=== PATIENT | male | born 1955 | race Caucasian/White ===

== ENCOUNTER 2022-07-22 11:58 | Emergency (ER) | payer OTHER, BC ==
--- OUTSIDE RECORDS SUMMARY | 2022-07-22 12:06 | XMS REPORT | Continuity of Care Document ---
:1955 Author Organization [facility] t Address [address] [place] [address] Dr. [place]. [address] [place] [address] Care Team Providers Name Role Phone Say Lanier Primary Care Physician [phone] Say Lanier Attending Clinician Unavailable Melba KUMAR, Vinicio Attending Clinician [phone] Kristian DWYER, Cristal Lin Attending Clinician Unavailable Only, Gal Adult [facility] Test Attending Clinician Unavailable Bert Andres MD Attending Clinician BERT ANDRES Attending Clinician Unavailable Fatimah DWYER, Monse Attending Clinician Unavailable Payers Payer Name Policy Type Policy Number Effective Date Expiration Date S jules Blue Cross Blue 6 [id number] 2021 [facility] 00:00:00 - [facility] MEDICARE PART A [id number] 2018 \T\ B 00:00:00 BCBS FED SELECT [id number] 2021 00:00:00 Blue Cross Blue C1 [id number] 2013 Common Sp [facility] 00:00:00 - [facility] MEDICARE MB [id number] 2018 [facility] 00:00:00 - [facility] MEDICARE MB [id number] 2018 [facility] 00:00:00 - [facility] Blue Cross Blue C1 [id number] 2013 Common Sp [facility] [place] 00:00:00 [facility] Problems Condition Condition Condition Status Onset Resolution Last Treating Co mments Source Name Details Category Date Date Treatment Clinician Date [id number] Chronic Problem Active Common obstructiv Spirit e - [facility] unspecifie Medica l d COPD Center type [id number] Squamous Problem Active Comm on cell [facility] carcinoma - [facility] of skin [facility] [id number] Chronic Problem Active Commo n pain Spirit syndrome - 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 [id number] Acute Problem Active Common stress Spirit reaction [facility] [id number] Mixed Problem Active Common hyperlipid Spirit emia [facility] [id number] Lumbar Problem Active Common degenerati Spirit ve disc - [facility] disease [facility] [id number] Other Problem Active Common obesity Spirit due to - [facility] excess [facility] [id number] Body mass Problem Active Com mon index [facility] (BMI) [facility] 33.0-33.9, [facility] [id number] Primary Problem Active Common insomnia [facility] [id number] Essential Problem Active Comm on hypertensi Spirit on [facility] [id number] Calculus Problem Active Commo n of left Spirit kidney [facility] Allergies, Adverse Reactions, Alerts Allergy Allergy Status Severity Reaction(s) Onset Inactive Treating Comm ents Source Name Type Date Date Clinician NO KNOWN Drug Active Univers ALLERGIE Class [facility] Social History Social Habit Start Date Stop Date Quantity Comments Source Exposure to SARS-CoV-2 Not sure [facility] [place] [facility] History of Tobacco Use Co mmon [facility] Sex Assigned At Com mon [facility] Smoking Status Start Date Stop Date Source Unknown if ever smoked [facility] [place] [facility] Never Smoker Common [facility] Medications Ordered Filled Start Stop Current Ordering Indication Dosage Frequency Signature Comments Components Source Medication Medication Date Date Medication? Clinician (SIG) Name Name Zolpidem Zolpidem No 1{table QD Zolpidem Tartrate ER Tartrate ER 9-06 t_at_be Tartrate 12.5 MG 12.5 MG 00:00: dtime_a ER 12.5 MG 00 s_neede d} Zolpidem Zolpidem No 1{table QD Zolpidem Tartrate ER Tartrate ER 9-06 t_at_be Tartrate 12.5 MG 12.5 MG 00:00: dtime_a ER 12.5 MG 00 s_neede d} Zolpidem Zolpidem No 1{table QD Zolpidem Tartrate ER Tartrate ER 9-06 t_at_be Tartrate 12.5 MG 12.5 MG 00:00: dtime_a ER 12.5 MG 00 s_neede d} Zolpidem Zolpidem No 1{table QD Zolpidem Tartrate ER Tartrate ER 9-06 t_at_be Tartrate 12.5 MG 12.5 MG 00:00: dtime_a ER 12.5 MG 00 s_neede d} Zolpidem Zolpidem No 1{table QD Zolpidem Tartrate ER Tartrate ER 8-16 t_at_be Tartrate 12.5 MG 12.5 MG 00:00: dtime_a ER 12.5 MG 00 s_neede d} Zolpidem Zolpidem No 1{table QD Zolpidem Tartrate ER Tartrate ER 8-16 t_at_be Tartrate 12.5 MG 12.5 MG 00:00: dtime_a ER 12.5 MG 00 s_neede d} Zolpidem Zolpidem No 1{table QD Zolpidem Tartrate ER Tartrate ER 7-14 t_at_be Tartrate 12.5 MG 12.5 MG 00:00: dtime_a ER 12.5 MG 00 s_neede d} Zolpidem Zolpidem 0 No 1{table QD Zolpidem Tartrate ER Tartrate ER 7-14 t_at_be Tartrate 12.5 MG 12.5 MG 00:00: dtime_a ER 12.5 MG 00 s_neede d} Zolpidem Zolpidem 2021-0 No 1{table QD Zolpidem Tartrate ER Tartrate ER 7-14 t_at_be Tartrate 12.5 MG 12.5 MG 00:00: dtime_a ER 12.5 MG 00 s_neede d} Zolpidem Zolpidem 2021-0 No 1{table QD Zolpidem Tartrate ER Tartrate ER 7-14 t_at_be Tartrate 12.5 MG 12.5 MG 00:00: dtime_a ER 12.5 MG 00 s_neede d} Zolpidem Zolpidem 2021-0 No 1{table QD Zolpidem Tartrate ER Tartrate ER 7-14 t_at_be Tartrate 12.5 MG 12.5 MG 00:00: dtime_a ER 12.5 MG 00 s_neede d} Zolpidem Zolpidem 2021-0 No 1{table QD Zolpidem Tartrate ER Tartrate ER -14 t_at_be Tartrate 12.5 MG 12.5 MG 00:00: dtime_a ER 12.5 MG 00 s_neede d} methylPREDN methylPREDN 2021-2021- No QD methylPRED ISolone 4 ISolone 4 01-16- NISolone 4 MG MG 00:00: 00:00 MG 00 :00 methylPREDN methylPREDN 2021-0 2021- No QD methylPRED ISolone 4 ISolone 4 01-16- NISolone 4 MG MG 00:00: 00:00 MG 00 :00 methylPREDN methylPREDN 2021-0 2021- No QD methylPRED ISolone 4 ISolone 4 01-16- NISolone 4 MG MG 00:00: 00:00 MG 00 :00 Zolpidem Zolpidem 2021-0 No 1{table QD Zolpidem Tartrate ER Tartrate ER 4-08 t_at_be Tartrate 12.5 MG 12.5 MG 00:00: dtime_a ER 12.5 MG 00 s_neede d} Zolpidem Zolpidem No 1{table QD Zolpidem Tartrate ER Tartrate ER 4-08 t_at_be Tartrate 12.5 MG 12.5 MG 00:00: dtime_a ER 12.5 MG 00 s_neede d} Zolpidem Zolpidem No 1{table QD Zolpidem Tartrate ER Tartrate ER 4-08 t_at_be Tartrate 12.5 MG 12.5 MG 00:00: dtime_a ER 12.5 MG 00 s_neede d} Zolpidem Zolpidem No 1{table QD Zolpidem Tartrate ER Tartrate ER 4-08 t_at_be Tartrate 12.5 MG 12.5 MG 00:00: dtime_a ER 12.5 MG 00 s_neede d} Zolpidem Zolpidem No 1{table QD Zolpidem Tartrate ER Tartrate ER 4-08 t_at_be Tartrate 12.5 MG 12.5 MG 00:00: dtime_a ER 12.5 MG 00 s_neede d} Zolpidem Zolpidem No 1{table QD Zolpidem Tartrate ER Tartrate ER 4-08 t_at_be Tartrate 12.5 MG 12.5 MG 00:00: dtime_a ER 12.5 MG 00 s_neede d} Zolpidem Zolpidem No 1{table QD Zolpidem Tartrate ER Tartrate ER 4-08 t_at_be Tartrate 12.5 MG 12.5 MG 00:00: dtime_a ER 12.5 MG 00 s_neede d} Zolpidem Zolpidem No 1{table QD Zolpidem Tartrate ER Tartrate ER 4-08 t_at_be Tartrate 12.5 MG 12.5 MG 00:00: dtime_a ER 12.5 MG 00 s_neede d} Misc Yes 1{tbl} Q.5D Take 1 UT Natural 3-25 tablet by [employer] 09:48: mouth 2 (HEALTHY 28 (two) LIVER PO) times a day. diazePAM Yes 1 tablet UT (Valium) 5 -25 as needed Heal th MG tablet 09:47: 44 docusate Yes 1 tablet UT sodium 3-25 as needed Health (Colace) 09:47: 100 MG 44 tablet Ginkgo Yes TAKE 1 UT Biloba 120 -25 CAPSULE Health MG capsule 09:47: DAILY 44 Multiple Yes not UT Vitamin 3-25 defined Health (Multivitam 09:47: in) tablet 44 chlorphenir 2021- No TAKE UT amine -11-14 TABLET PRN Health (Chlor-Trim 09:47: 00:00 eton) 4 MG 44 :00 tablet meloxicam 2021- No TK 1 T PO UT (Mobic) 15 11-14 QD WC Health MG tablet 09:47: 00:00 44 :00 Turmeric 2021- No Turmeric/G UT 450 MG 11-14 amado Health capsule 09:47: 00:00 w/Bioperin 26 :00 e 1950 mg 1 daily fish oil 2021- No 1000mg 1,000 mg. U T concentrate 11-14 Health ([place]-3) 09:45: 00:00 1000 MG 57 :00 capsule zolpidem CR Yes 12.5mg QD Take 12.5 UT (Ambien CR) 3-10 mg by Health 12.5 MG ER 00:00: mouth at tablet 00 night if needed. Zolpidem Zolpidem No 1{table QD Zolpidem Tartrate ER Tartrate ER 10-29 t_at_be Tartrate 12.5 MG 12.5 MG 00:00: dtime_a ER 12.5 MG 00 s_neede d} Zolpidem Zolpidem No 1{table QD Zolpidem Tartrate ER Tartrate ER 10-29 t_at_be Tartrate 12.5 MG 12.5 MG 00:00: dtime_a ER 12.5 MG 00 s_neede d} Zolpidem Zolpidem No 1{table QD Zolpidem Tartrate ER Tartrate ER 10-29 t_at_be Tartrate 12.5 MG 12.5 MG 00:00: dtime_a ER 12.5 MG 00 s_neede d} Zolpidem Zolpidem No 1{table QD Zolpidem Tartrate ER Tartrate ER 3- t_at_be Tartrate 12.5 MG 12.5 MG 00:00: dtime_a ER 12.5 MG 00 s_neede d} Zolpidem Zolpidem No 1{table QD Zolpidem Tartrate ER Tartrate ER 3- t_at_be Tartrate 12.5 MG 12.5 MG 00:00: dtime_a ER 12.5 MG 00 s_neede d} Zolpidem Zolpidem No 1{table QD Zolpidem Tartrate ER Tartrate ER 3- t_at_be Tartrate 12.5 MG 12.5 MG 00:00: dtime_a ER 12.5 MG 00 s_neede d} Zolpidem Zolpidem No 1{table QD Zolpidem Tartrate ER Tartrate ER 3 t_at_be Tartrate 12.5 MG 12.5 MG 00:00: dtime_a ER 12.5 MG 00 s_neede d} Zolpidem Zolpidem No 1{table QD Zolpidem Tartrate ER Tartrate ER 3 t_at_be Tartrate 12.5 MG 12.5 MG 00:00: dtime_a ER 12.5 MG 00 s_neede d} atorvastati Yes 40mg Take 40 mg UT n (Lipitor) 03 by mouth Heal th 40 MG 00:00: every tablet 00 night. Amoxicillin Amoxicillin 2021- No 1{table BID Amoxicilli -Pot -Pot 10-20 0310 t} n-Pot Clavulanate Clavulanate 00:00: 00:00 Clavulanat 875-125 MG 875-125 MG 00 :00 e 875-125 MG Amoxicillin Amoxicillin 2021- No 1{table BID Amoxicilli -Pot -Pot 10-20 0310 t} n-Pot Clavulanate Clavulanate 00:00: 00:00 Clavulanat 875-125 MG 875-125 MG 00 :00 e 875-125 MG Amoxicillin Amoxicillin 2021- No 1{table BID Amoxicilli -Pot -Pot 10-20 t} n-Pot Clavulanate Clavulanate 00:00: 00:00 Clavulanat 875-125 MG 875-125 MG 00 :00 e 875-125 MG Amoxicillin Amoxicillin 2021- No 1{table BID Amoxicilli -Pot -Pot 10-20 t} n-Pot Clavulanate Clavulanate 00:00: 00:00 Clavulanat 875-125 MG 875-125 MG 00 :00 e 875-125 MG predniSONE 2021- No TAKE 2 UT (Deltasone) 10-17 TABLETS BY H ealth 20 MG 00:00: 00:00 MOUTH tablet 00 :00 EVERY DAY WITH FOOD OR MILK FOR 5 DAYS predniSONE predniSONE 2021-2021- No QD predniSONE 20 MG 20 MG 10-17 20 MG 00:00: 00:00 00 :00 Azithromyci Azithromyci 2021-0 2021- No QD Azithromyc n 250 MG n 250 MG 10-17 in 250 MG 00:00: 00:00 00 :00 Azithromyci Azithromyci 2021-0 2- No QD Azithromyc n 250 MG n 250 MG 10-17 in 250 MG 00:00: 00:00 00 :00 predniSONE predniSONE 2021-0 2021- No QD predniSONE 20 MG 20 MG 10-17 20 MG 00:00: 00:00 00 :00 Azithromyci Azithromyci 2021-0 2021- No QD Azithromyc n 250 MG n 250 MG 10-17 in 250 MG 00:00: 00:00 00 :00 predniSONE predniSONE 2021-0 2021- No QD predniSONE 20 MG 20 MG -10-22 20 MG 00:00: 00:00 00 :00 Azithromyci Azithromyci 2021-0 2021- No QD Azithromyc n 250 MG n 250 MG 10-17 in 250 MG 00:00: 00:00 00 :00 predniSONE predniSONE 2021-0 2021- No QD predniSONE 20 MG 20 MG -25 - 20 MG 00:00: 00:00 00 :00 Azithromyci Azithromyci 2021-0 2021- No QD Azithromyc n 250 MG n 250 MG 10-17- in 250 MG 00:00: 00:00 00 :00 predniSONE predniSONE 2021-0 2021- No QD predniSONE 20 MG 20 MG 10-17- 20 MG 00:00: 00:00 00 :00 Pseudoeph-B Pseudoeph-B 0 2021- No 10{ml_a TID Pseudoeph- romphen-DM romphen-DM 10-15-05 s_neede Bromphen-D 00:00: 00:00 d} M 30-2-10 MG/5ML MG/5ML 00 :00 MG/5ML Pseudoeph-B Pseudoeph-B 2021- No 10{ml_a TID Pseudoeph- romphen-DM romphen-DM 10-15-05 s_neede Bromphen-D - 00:00: 00:00 d} M 30-2-10 MG/5ML MG/5ML 00 :00 MG/5ML Pseudoeph-B Pseudoeph-B 2021-2021- No 10{ml_a TID Pseudoeph- romphen-DM romphen-DM 10-15-05 s_neede Bromphen-D -2- 00:00: 00:00 d} M 30-2-10 MG/5ML MG/5ML 00 :00 MG/5ML Pseudoeph-B Pseudoeph-B 2021-2021- No 10{ml_a TID Pseudoeph- romphen-DM romphen-DM 2-05 s_neede Bromphen-D 2-10 2-10 00:00: 00:00 d} M 30-2-10 MG/5ML MG/5ML 00 :00 MG/5ML Pseudoeph-B Pseudoeph-B 2021- No 10{ml_a TID Pseudoeph- romphen-DM romphen-DM 10-15-05 s_neede Bromphen-D 00:00: 00:00 d} M 30-2-10 MG/5ML MG/5ML 00 :00 MG/5ML Pseudoeph-B Pseudoeph-B 2021- No 10{ml_a TID Pseudoeph- romphen-DM romphen-DM 10-15-05 s_neede Bromphen-D 00:00: 00:00 d} M 30-2-10 MG/5ML MG/5ML 00 :00 MG/5ML Pseudoeph-B Pseudoeph-B 2021- No 10{ml_a TID Pseudoeph- romphen-DM romphen-DM 10-15- s_neede Bromphen-D 00:00: 00:00 d} M 30-2-10 MG/5ML MG/5ML 00 :00 MG/5ML Zolpidem Zolpidem 0 No 1{table QD Zolpidem Tartrate ER Tartrate ER 2-08 t_at_be Tartrate 12.5 MG 12.5 MG 00:00: dtime_a ER 12.5 MG 00 s_neede d} Zolpidem Zolpidem 0 No 1{table QD Zolpidem Tartrate ER Tartrate ER 2-08 t_at_be Tartrate 12.5 MG 12.5 MG 00:00: dtime_a ER 12.5 MG 00 s_neede d} Zolpidem Zolpidem 0 No 1{table QD Zolpidem Tartrate ER Tartrate ER 2-08 t_at_be Tartrate 12.5 MG 12.5 MG 00:00: dtime_a ER 12.5 MG 00 s_neede d} Zolpidem Zolpidem 2021-0 No 1{table QD Zolpidem Tartrate ER Tartrate ER 2-08 t_at_be Tartrate 12.5 MG 12.5 MG 00:00: dtime_a ER 12.5 MG 00 s_neede d} Zolpidem Zolpidem No 1{table QD Zolpidem Tartrate ER Tartrate ER 2-08 t_at_be Tartrate 12.5 MG 12.5 MG 00:00: dtime_a ER 12.5 MG 00 s_neede d} Zolpidem Zolpidem No 1{table QD Zolpidem Tartrate ER Tartrate ER 2-08 t_at_be Tartrate 12.5 MG 12.5 MG 00:00: dtime_a ER 12.5 MG 00 s_neede d} Zolpidem Zolpidem No 1{table QD Zolpidem Tartrate ER Tartrate ER 2-08 t_at_be Tartrate 12.5 MG 12.5 MG 00:00: dtime_a ER 12.5 MG 00 s_neede d} Aspirin Low 2021- No [id number] TAKE 1 UT Dose 81 MG 09-24-04 TABLET BY [facility] EC tablet 00:00: 04:59 MOUTH 00 :00 EVERY DAY methocarbam 2021- No 500mg [id number] Take 500 UT ol 09-24 03-25 [id number] mg by [facility] (Robaxin) 00:00: 00:00 3D mouth 3 500 MG 00 :00 (three) tablet times a day. metoprolol Yes [id number] TAKE 1 U T succinate 1-17 TABLET BY Healt h XL 00:00: MOUTH (Toprol-XL) 00 DAILY 25 MG 24 hr tablet ursodiol 0 Yes 300mg Q.5D Take 300 UT (Actigall) 1-08 mg by Health 300 MG 00:00: mouth 2 capsule 00 (two) times a day. Zolpidem Zolpidem 2020-08 No 1{table QD Zolpidem Tartrate ER Tartrate ER 2-08 t_at_be Tartrate 12.5 MG 12.5 MG 00:00: dtime_a ER 12.5 MG 00 s_neede d} Zolpidem Zolpidem 2020-08 No 1{table QD Zolpidem Tartrate ER Tartrate ER 2-08 t_at_be Tartrate 12.5 MG 12.5 MG 00:00: dtime_a ER 12.5 MG 00 s_neede d} Zolpidem Zolpidem 2020-08 No 1{table QD Zolpidem Tartrate ER Tartrate ER 2-08 t_at_be Tartrate 12.5 MG 12.5 MG 00:00: dtime_a ER 12.5 MG 00 s_neede d} Augmentin Augmentin 2020-08- No 1{table Augmentin 500-125 MG 500-125 MG 08-27 t} 500-125 MG 00:00: 00:00 00 :00 Augmentin Augmentin 2020-08- No 1{table Augmentin 500-125 MG 500-125 MG 08-27 t} 500-125 MG 00:00: 00:00 00 :00 Zolpidem Zolpidem No 1{table QD Zolpidem Tartrate 10 Tartrate 10 9-08 t_at_be Tartrate MG MG 00:00: dtime_a 10 MG 00 s_neede d} Zolpidem Zolpidem No 1{table QD Zolpidem Tartrate 10 Tartrate 10 9-08 t_at_be Tartrate MG MG 00:00: dtime_a 10 MG 00 s_neede d} lisinopril 2021- No 2.5mg QD Take 2.5 U T 2.5 MG 24 03-25 mg by Health tablet 00:00: 00:00 mouth 1 00 :00 (one) time each day. eszopiclone 2021- No 3mg QD Take 3 mg UT (Lunesta) 3 01-02-25 by mouth Hea lth MG tablet 00:00: 00:00 at night 00 :00 if needed. traMADol 2021- No TAKE 1 TO UT (Ultram) 50 5-13 -25 2 TABLETS He alth MG tablet 00:00: 00:00 BY MOUTH 00 :00 EVERY 4 TO 6 HOURS NEEDED ketorolac 2021- No 10mg Q6H Take 10 mg U T (Toradol) 5-04 03-25 by mouth Healt h 10 MG 00:00: 00:00 every 6 tablet 00 :00 (six) hours if needed. Cholecalcif Yes TAKE 1 UT deejay 3-26 TABLET Health (Vitamin 00:00: DAILY D3) 125 MCG 00 (5000 UT) tablet Melatonin Yes 10mg 10 mg. UT 10 MG 3-26 Health tablet 00:00: 00 Zinc 50 MG Yes TAKE 1 UT tablet 3-26 TABLET Health 00:00: DAILY. 00 [facility] 2019-08 No 40mg Common (Triamcinol (Triamcinol 0-13 S pirit one) one) 00:00: - [facility] 2019-08 No 40mg Common (Triamcinol (Triamcinol 0-13 S pirit one) one) 00:00: - [facility] 2019-08 No 40mg Common (Triamcinol (Triamcinol 0-13 S pirit one) one) 00:00: - [facility] 2019-08 No 40mg Common (Triamcinol (Triamcinol 0-13 S pirit one) one) 00:00: - [facility] 2019- No 40mg Common (Triamcinol (Triamcinol 0-13 S pirit one) one) 00:00: - [facility] 2019- No 40mg Common (Triamcinol (Triamcinol 0-13 S pirit one) one) 00:00: - [facility] 2019- No 40mg Common (Triamcinol (Triamcinol 0-13 S pirit one) one) 00:00: - [facility] 2019- No 40mg Common (Triamcinol (Triamcinol 0-13 S pirit one) one) 00:00: - [facility] 2019- No 40mg Common (Triamcinol (Triamcinol 0-13 S pirit one) one) 00:00: - [facility] 00 [facility] 2019- No 40mg Common (Triamcinol (Triamcinol 0-13 S pirit one) one) 00:00: - [facility] 00 [facility] Ken[facility]og 2019- No 40mg Common (Triamcinol (Triamcinol 0-13 S pirit one) one) 00:00: - [facility] 00 [facility] Kenalog 2019- No 40mg Common (Triamcinol (Triamcinol 0-13 S pirit one) one) 00:00: - [facility] 00 [facility] Kenalog 2019- No 40mg Common (Triamcinol (Triamcinol 0-13 S pirit one) one) 00:00: - [facility] 00 [facility] Ken[facility] 2019- No 40mg Common (Triamcinol (Triamcinol 0-13 S pirit one) one) 00:00: - [facility] 00 [facility] Ken[facility] 2019- No 40mg Common (Triamcinol (Triamcinol 0-13 S pirit one) one) 00:00: - [facility] 00 [facility] Kenalog 2019- No 40mg Common (Triamcinol (Triamcinol 0-13 S pirit one) one) 00:00: - [facility] 00 [facility] Kenalog 2019- No 40mg Common (Triamcinol (Triamcinol 0-13 S pirit one) one) 00:00: - [facility] 00 [facility] Kenalog 2019- No 40mg Common (Triamcinol (Triamcinol 0-13 S pirit one) one) 00:00: - [facility]I 00 [facility] Kenalog 2019- No 40mg Common (Triamcinol (Triamcinol 0-13 S pirit one) one) 00:00: - [facility]I 00 [facility] Kenalog 2019- No 40mg Common (Triamcinol (Triamcinol 0-13 S pirit one) one) 00:00: - [facility]I 00 [facility] Kenalog 2019- No 40mg Common (Triamcinol (Triamcinol 0-13 S pirit one) one) 00:00: - [facility] 00 [facility] Multivitami Multivitami Yes Say not Common n n Lanier defined [facility] Ursodiol Ursodiol Yes Say 1 capsules Common Lanier [facility] Docusate Docusate Yes Say 1 tablet C ommon Sodium Sodium Lanier as needed Spiri t [facility] Eszopiclone Eszopiclone Yes Say 1 tablet Common Lanier immediatel [facility] y before [facility] bedtime [facility] Lisinopril Lisinopril Yes Say 1 tablet Common Lanier [facility] Metoprolol Metoprolol Yes Say 1 tablet Common Succinate Succinate Lanier Spir it ER ER [facility] Aspirin Aspirin Yes Say 1 tablet Com mon Lanier [facility] Hydrocodone Hydrocodone Yes Say 1-2 tablet Common -Acetaminop -Acetaminop Lanier as needed [facility] hen [facility] Diazepam Diazepam Yes Say 1 tablet C ommon Lanier as needed [facility] Eszopiclone Eszopiclone Yes Say (Schedule Common [place]ier IV Drug) Spirit TK 1 T PO - CHI ONCE A DAY [facility] Meloxicam Meloxicam Yes Say TK 1 T PO Common Lanier QD WC [facility] Atorvastati Atorvastati Yes Say 1 tablet Common n Calcium n Calcium Lanier Spir it [facility] Lisinopril Lisinopril No Lisinopril 2.5 MG 2.5 MG 2.5 MG Zinc Zinc No Zinc Diazepam 5 Diazepam 5 No 1{table TID Diazepam 5 MG MG t_as_ne MG eded} Vitamin D3 Vitamin D3 No Vitamin D3 Metoprolol Metoprolol No 1{table QD Metoprolol Succinate Succinate t} Succinate ER 25 MG ER 25 MG ER 25 MG Atorvastati Atorvastati No Atorvastat n Calcium n Calcium in Calcium 40 MG 40 MG 40 MG Ginkgo Ginkgo No Ginkgo Meloxicam Meloxicam No Meloxicam 15 MG 15 MG 15 MG Ursodiol Ursodiol No Ursodiol 300 MG 300 MG 300 MG Atorvastati Atorvastati No 1{table QD Atorvastat n Calcium n Calcium t} in Calcium 40 MG 40 MG 40 MG HYDROcodone HYDROcodone No HYDROcodon -Acetaminop -Acetaminop e-Acetamin hen 10-325 hen 10-325 ophen MG MG 10-325 MG Eszopiclone Eszopiclone No Eszopiclon 2 MG 2 MG e 2 MG Methocarbam Methocarbam No Methocarba ol 500 MG ol 500 MG mol 500 MG Aspirin 81 Aspirin 81 No 1{table QD Aspirin 81 MG MG t} MG Multivitami Multivitami No Multivitam n n in Multi Multi No Multi Vitamin Vitamin Vitamin Docusate Docusate No 1{table BID Docusate Sodium 100 Sodium 100 t_as_ne Sodium 100 MG MG eded} MG Fish Oil Fish Oil No Fish Oil Lunesta 3 Lunesta 3 No 1{table QD Lunesta 3 MG MG t_immed MG iately_ before_ bedtime } traMADol traMADol No traMADol HCl 50 MG HCl 50 MG HCl 50 MG Lisinopril Lisinopril No Lisinopril 2.5 MG 2.5 MG 2.5 MG Zinc Zinc No Zinc Diazepam 5 Diazepam 5 No 1{table TID Diazepam 5 MG MG t_as_ne MG eded} Vitamin D3 Vitamin D3 No Vitamin D3 Metoprolol Metoprolol No 1{table QD Metoprolol Succinate Succinate t} Succinate ER 25 MG ER 25 MG ER 25 MG Atorvastati Atorvastati No Atorvastat n Calcium n Calcium in Calcium 40 MG 40 MG 40 MG Ginkgo Ginkgo No Ginkgo Meloxicam Meloxicam No Meloxicam 15 MG 15 MG 15 MG Ursodiol Ursodiol No Ursodiol 300 MG 300 MG 300 MG Atorvastati Atorvastati No 1{table QD Atorvastat n Calcium n Calcium t} in Calcium 40 MG 40 MG 40 MG HYDROcodone HYDROcodone No HYDROcodon -Acetaminop -Acetaminop e-Acetamin hen 10-325 hen 10-325 ophen MG MG 10-325 MG Eszopiclone Eszopiclone No Eszopiclon 2 MG 2 MG e 2 MG Methocarbam Methocarbam No Methocarba ol 500 MG ol 500 MG mol 500 MG Aspirin 81 Aspirin 81 No 1{table QD Aspirin 81 MG MG t} MG Zinc Zinc No Zinc Lisinopril Lisinopril No Lisinopril 2.5 MG 2.5 MG 2.5 MG Atorvastati Atorvastati No 1{table QD Atorvastat n Calcium n Calcium t} in Calcium 40 MG 40 MG 40 MG Diazepam 5 Diazepam 5 No 1{table TID Diazepam 5 MG MG t_as_ne MG eded} Meloxicam Meloxicam No Meloxicam 15 MG 15 MG 15 MG traMADol traMADol No traMADol HCl 50 MG HCl 50 MG HCl 50 MG Aspirin 81 Aspirin 81 No 1{table QD Aspirin 81 MG MG t} MG HYDROcodone HYDROcodone No HYDROcodon -Acetaminop -Acetaminop e-Acetamin hen 10-325 hen 10-325 ophen MG MG 10-325 MG Multivitami Multivitami No Multivitam n n in Multi Multi No Multi Vitamin Vitamin Vitamin Vitamin D3 Vitamin D3 No Vitamin D3 Fish Oil Fish Oil No Fish Oil Eszopiclone Eszopiclone No Eszopiclon 2 MG 2 MG e 2 MG Lunesta 3 Lunesta 3 No 1{table QD Lunesta 3 MG MG t_immed MG iately_ before_ bedtime } Methocarbam Methocarbam No Methocarba ol 500 MG ol 500 MG mol 500 MG Ursodiol Ursodiol No Ursodiol 300 MG 300 MG 300 MG Metoprolol Metoprolol No 1{table QD Metoprolol Succinate Succinate t} Succinate ER 25 MG ER 25 MG ER 25 MG Atorvastati Atorvastati No Atorvastat n Calcium n Calcium in Calcium 40 MG 40 MG 40 MG Ginkgo Ginkgo No Ginkgo Docusate Docusate No 1{table BID Docusate Sodium 100 Sodium 100 t_as_ne Sodium 100 MG MG eded} MG Ursodiol Ursodiol No 1{capsu BID Ursodiol 300 MG 300 MG les} 300 MG Meloxicam Meloxicam No Meloxicam 15 MG 15 MG 15 MG Zinc Zinc No Zinc Aspirin 81 Aspirin 81 No 1{table QD Aspirin 81 MG MG t} MG Methocarbam Methocarbam No Methocarba ol 500 MG ol 500 MG mol 500 MG Atorvastati Atorvastati No 1{table QD Atorvastat n Calcium n Calcium t} in Calcium 40 MG 40 MG 40 MG Multivitami Multivitami No Multivitam n n in Metoprolol Metoprolol No 1{table QD Metoprolol Succinate Succinate t} Succinate ER 25 MG ER 25 MG ER 25 MG Multi Multi No Multi Vitamin Vitamin Vitamin HYDROcodone HYDROcodone No HYDROcodon -Acetaminop -Acetaminop e-Acetamin hen 10-325 hen 10-325 ophen MG MG 10-325 MG Ursodiol Ursodiol No Ursodiol 300 MG 300 MG 300 MG Fish Oil Fish Oil No Fish Oil Diazepam 5 Diazepam 5 No 1{table TID Diazepam 5 MG MG t_as_ne MG eded} traMADol traMADol No traMADol HCl 50 MG HCl 50 MG HCl 50 MG Lunesta 3 Lunesta 3 No 1{table QD Lunesta 3 MG MG t_immed MG iately_ before_ bedtime } Atorvastati Atorvastati No Atorvastat n Calcium n Calcium in Calcium 40 MG 40 MG 40 MG Docusate Docusate No 1{table BID Docusate Sodium 100 Sodium 100 t_as_ne Sodium 100 MG MG eded} MG Vitamin D3 Vitamin D3 No Vitamin D3 Ginkgo Ginkgo No Ginkgo Eszopiclone Eszopiclone No Eszopiclon 2 MG 2 MG e 2 MG Lisinopril Lisinopril No Lisinopril 2.5 MG 2.5 MG 2.5 MG Meloxicam Meloxicam No Meloxicam 15 MG 15 MG 15 MG Zinc Zinc No Zinc Aspirin 81 Aspirin 81 No 1{table QD Aspirin 81 MG MG t} MG Methocarbam Methocarbam No Methocarba ol 500 MG ol 500 MG mol 500 MG Atorvastati Atorvastati No 1{table QD Atorvastat n Calcium n Calcium t} in Calcium 40 MG 40 MG 40 MG Multivitami Multivitami No Multivitam n n in Metoprolol Metoprolol No 1{table QD Metoprolol Succinate Succinate t} Succinate ER 25 MG ER 25 MG ER 25 MG Multi Multi No Multi Vitamin Vitamin Vitamin HYDROcodone HYDROcodone No HYDROcodon -Acetaminop -Acetaminop e-Acetamin hen 10-325 hen 10-325 ophen MG MG 10-325 MG Ursodiol Ursodiol No Ursodiol 300 MG 300 MG 300 MG Fish Oil Fish Oil No Fish Oil Diazepam 5 Diazepam 5 No 1{table TID Diazepam 5 MG MG t_as_ne MG eded} traMADol traMADol No traMADol HCl 50 MG HCl 50 MG HCl 50 MG Lunesta 3 Lunesta 3 No 1{table QD Lunesta 3 MG MG t_immed MG iately_ before_ bedtime } Atorvastati Atorvastati No Atorvastat n Calcium n Calcium in Calcium 40 MG 40 MG 40 MG Docusate Docusate No 1{table BID Docusate Sodium 100 Sodium 100 t_as_ne Sodium 100 MG MG eded} MG Vitamin D3 Vitamin D3 No Vitamin D3 Ginkgo Ginkgo No Ginkgo Eszopiclone Eszopiclone No Eszopiclon 2 MG 2 MG e 2 MG Lisinopril Lisinopril No Lisinopril 2.5 MG 2.5 MG 2.5 MG Meloxicam Meloxicam No Meloxicam 15 MG 15 MG 15 MG HYDROcodone HYDROcodone No HYDROcodon -Acetaminop -Acetaminop e-Acetamin hen 10-325 hen 10-325 ophen MG MG 10-325 MG Metoprolol Metoprolol No 1{table QD Metoprolol Succinate Succinate t} Succinate ER 25 MG ER 25 MG ER 25 MG Ursodiol Ursodiol No Ursodiol 300 MG 300 MG 300 MG Atorvastati Atorvastati No 1{table QD Atorvastat n Calcium n Calcium t} in Calcium 40 MG 40 MG 40 MG Aspirin 81 Aspirin 81 No 1{table QD Aspirin 81 MG MG t} MG Ginkgo Ginkgo No Ginkgo Multivitami Multivitami No Multivitam n n in esta 3 esta 3 No 1{table QD Lunesta 3 MG MG t_immed MG iately_ before_ bedtime } Lisinopril Lisinopril No Lisinopril 2.5 MG 2.5 MG 2.5 MG traMADol traMADol No traMADol HCl 50 MG HCl 50 MG HCl 50 MG Atorvastati Atorvastati No Atorvastat n Calcium n Calcium in Calcium 40 MG 40 MG 40 MG Zinc Zinc No Zinc Fish Oil Fish Oil No Fish Oil Methocarbam Methocarbam No Methocarba ol 500 MG ol 500 MG mol 500 MG Diazepam 5 Diazepam 5 No 1{table TID Diazepam 5 MG MG t_as_ne MG eded} Vitamin D3 Vitamin D3 No Vitamin D3 Docusate Docusate No 1{table BID Docusate Sodium 100 Sodium 100 t_as_ne Sodium 100 MG MG eded} MG Multi Multi No Multi Vitamin Vitamin Vitamin Eszopiclone Eszopiclone No Eszopiclon 2 MG 2 MG e 2 MG Meloxicam Meloxicam No Meloxicam 15 MG 15 MG 15 MG HYDROcodone HYDROcodone No HYDROcodon -Acetaminop -Acetaminop e-Acetamin hen 10-325 hen 10-325 ophen MG MG 10-325 MG Metoprolol Metoprolol No 1{table QD Metoprolol Succinate Succinate t} Succinate ER 25 MG ER 25 MG ER 25 MG Ursodiol Ursodiol No Ursodiol 300 MG 300 MG 300 MG Atorvastati Atorvastati No 1{table QD Atorvastat n Calcium n Calcium t} in Calcium 40 MG 40 MG 40 MG Aspirin 81 Aspirin 81 No 1{table QD Aspirin 81 MG MG t} MG Ginkgo Ginkgo No Ginkgo Multivitami Multivitami No Multivitam n n in Lunesta 3 Lunesta 3 No 1{table QD Lunesta 3 MG MG t_immed MG iately_ before_ bedtime } Lisinopril Lisinopril No Lisinopril 2.5 MG 2.5 MG 2.5 MG traMADol traMADol No traMADol HCl 50 MG HCl 50 MG HCl 50 MG Atorvastati Atorvastati No Atorvastat n Calcium n Calcium in Calcium 40 MG 40 MG 40 MG Zinc Zinc No Zinc Fish Oil Fish Oil No Fish Oil Methocarbam Methocarbam No Methocarba ol 500 MG ol 500 MG mol 500 MG Diazepam 5 Diazepam 5 No 1{table TID Diazepam 5 MG MG t_as_ne MG eded} Vitamin D3 Vitamin D3 No Vitamin D3 Docusate Docusate No 1{table BID Docusate Sodium 100 Sodium 100 t_as_ne Sodium 100 MG MG eded} MG Multi Multi No Multi Vitamin Vitamin Vitamin Eszopiclone Eszopiclone No Eszopiclon 2 MG 2 MG e 2 MG Lunesta 3 Lunesta 3 No 1{table QD Lunesta 3 MG MG t_immed MG iately_ before_ bedtime } Vitamin D3 Vitamin D3 No Vitamin D3 Multivitami Multivitami No Multivitam n n in Fish Oil Fish Oil No Fish Oil Ursodiol Ursodiol No Ursodiol 300 MG 300 MG 300 MG Metoprolol Metoprolol No 1{table QD Metoprolol Succinate Succinate t} Succinate ER 25 MG ER 25 MG ER 25 MG Zinc Zinc No Zinc HYDROcodone HYDROcodone No HYDROcodon -Acetaminop -Acetaminop e-Acetamin hen 10-325 hen 10-325 ophen MG MG 10-325 MG Meloxicam Meloxicam No Meloxicam 15 MG 15 MG 15 MG Lisinopril Lisinopril No Lisinopril 2.5 MG 2.5 MG 2.5 MG Atorvastati Atorvastati No 1{table QD Atorvastat n Calcium n Calcium t} in Calcium 40 MG 40 MG 40 MG Ginkgo Ginkgo No Ginkgo Eszopiclone Eszopiclone No Eszopiclon 2 MG 2 MG e 2 MG Aspirin 81 Aspirin 81 No 1{table QD Aspirin 81 MG MG t} MG Diazepam 5 Diazepam 5 No 1{table TID Diazepam 5 MG MG t_as_ne MG eded} Multi Multi No Multi Vitamin Vitamin Vitamin Methocarbam Methocarbam No Methocarba ol 500 MG ol 500 MG mol 500 MG Docusate Docusate No 1{table BID Docusate Sodium 100 Sodium 100 t_as_ne Sodium 100 MG MG eded} MG traMADol traMADol No traMADol HCl 50 MG HCl 50 MG HCl 50 MG Atorvastati Atorvastati No Atorvastat n Calcium n Calcium in Calcium 40 MG 40 MG 40 MG Diazepam 5 Diazepam 5 No 1{table TID Diazepam 5 MG MG t_as_ne MG eded} traMADol traMADol No traMADol HCl 50 MG HCl 50 MG HCl 50 MG Atorvastati Atorvastati No 1{table QD Atorvastat n Calcium n Calcium t} in Calcium 40 MG 40 MG 40 MG Metoprolol Metoprolol No 1{table QD Metoprolol Succinate Succinate t} Succinate ER 25 MG ER 25 MG ER 25 MG Aspirin 81 Aspirin 81 No 1{table QD Aspirin 81 MG MG t} MG Vitamin D3 Vitamin D3 No Vitamin D3 Atorvastati Atorvastati No Atorvastat n Calcium n Calcium in Calcium 40 MG 40 MG 40 MG HYDROcodone HYDROcodone No HYDROcodon -Acetaminop -Acetaminop e-Acetamin hen 10-325 hen 10-325 ophen MG MG 10-325 MG Methocarbam Methocarbam No Methocarba ol 500 MG ol 500 MG mol 500 MG Docusate Docusate No 1{table BID Docusate Sodium 100 Sodium 100 t_as_ne Sodium 100 MG MG eded} MG Multivitami Multivitami No Multivitam n n in Ursodiol Ursodiol No Ursodiol 300 MG 300 MG 300 MG Lunesta 3 Lunesta 3 No 1{table QD Lunesta 3 MG MG t_immed MG iately_ before_ bedtime } Zinc Zinc No Zinc Fish Oil Fish Oil No Fish Oil Multi Multi No Multi Vitamin Vitamin Vitamin Eszopiclone Eszopiclone No Eszopiclon 2 MG 2 MG e 2 MG Ginkgo Ginkgo No Ginkgo Meloxicam Meloxicam No Meloxicam 15 MG 15 MG 15 MG Lisinopril Lisinopril No Lisinopril 2.5 MG 2.5 MG 2.5 MG Diazepam 5 Diazepam 5 No 1{table TID Diazepam 5 MG MG t_as_ne MG eded} traMADol traMADol No traMADol HCl 50 MG HCl 50 MG HCl 50 MG Atorvastati Atorvastati No 1{table QD Atorvastat n Calcium n Calcium t} in Calcium 40 MG 40 MG 40 MG Metoprolol Metoprolol No 1{table QD Metoprolol Succinate Succinate t} Succinate ER 25 MG ER 25 MG ER 25 MG Aspirin 81 Aspirin 81 No 1{table QD Aspirin 81 MG MG t} MG Vitamin D3 Vitamin D3 No Vitamin D3 Atorvastati Atorvastati No Atorvastat n Calcium n Calcium in Calcium 40 MG 40 MG 40 MG HYDROcodone HYDROcodone No HYDROcodon -Acetaminop -Acetaminop e-Acetamin hen 10-325 hen 10-325 ophen MG MG 10-325 MG Methocarbam Methocarbam No Methocarba ol 500 MG ol 500 MG mol 500 MG Docusate Docusate No 1{table BID Docusate Sodium 100 Sodium 100 t_as_ne Sodium 100 MG MG eded} MG Multivitami Multivitami No Multivitam n n in Ursodiol Ursodiol No Ursodiol 300 MG 300 MG 300 MG Lunesta 3 Lunesta 3 No 1{table QD Lunesta 3 MG MG t_immed MG iately_ before_ bedtime } Zinc Zinc No Zinc Fish Oil Fish Oil No Fish Oil Multi Multi No Multi Vitamin Vitamin Vitamin Eszopiclone Eszopiclone No Eszopiclon 2 MG 2 MG e 2 MG Ginkgo Ginkgo No Ginkgo Meloxicam Meloxicam No Meloxicam 15 MG 15 MG 15 MG Lisinopril Lisinopril No Lisinopril 2.5 MG 2.5 MG 2.5 MG Diazepam 5 Diazepam 5 No 1{table TID Diazepam 5 MG MG t_as_ne MG eded} traMADol traMADol No traMADol HCl 50 MG HCl 50 MG HCl 50 MG Atorvastati Atorvastati No 1{table QD Atorvastat n Calcium n Calcium t} in Calcium 40 MG 40 MG 40 MG Metoprolol Metoprolol No 1{table QD Metoprolol Succinate Succinate t} Succinate ER 25 MG ER 25 MG ER 25 MG Aspirin 81 Aspirin 81 No 1{table QD Aspirin 81 MG MG t} MG Vitamin D3 Vitamin D3 No Vitamin D3 Atorvastati Atorvastati No Atorvastat n Calcium n Calcium in Calcium 40 MG 40 MG 40 MG HYDROcodone HYDROcodone No HYDROcodon -Acetaminop -Acetaminop e-Acetamin hen 10-325 hen 10-325 ophen MG MG 10-325 MG Methocarbam Methocarbam No Methocarba ol 500 MG ol 500 MG mol 500 MG Docusate Docusate No 1{table BID Docusate Sodium 100 Sodium 100 t_as_ne Sodium 100 MG MG eded} MG Multivitami Multivitami No Multivitam n n in Ursodiol Ursodiol No Ursodiol 300 MG 300 MG 300 MG Lunesta 3 Lunesta 3 No 1{table QD Lunesta 3 MG MG t_immed MG iately_ before_ bedtime } Zinc Zinc No Zinc Fish Oil Fish Oil No Fish Oil Multi Multi No Multi Vitamin Vitamin Vitamin Eszopiclone Eszopiclone No Eszopiclon 2 MG 2 MG e 2 MG Ginkgo Ginkgo No Ginkgo Meloxicam Meloxicam No Meloxicam 15 MG 15 MG 15 MG Lisinopril Lisinopril No Lisinopril 2.5 MG 2.5 MG 2.5 MG Diazepam 5 Diazepam 5 No 1{table TID Diazepam 5 MG MG t_as_ne MG eded} traMADol traMADol No traMADol HCl 50 MG HCl 50 MG HCl 50 MG Atorvastati Atorvastati No 1{table QD Atorvastat n Calcium n Calcium t} in Calcium 40 MG 40 MG 40 MG Metoprolol Metoprolol No 1{table QD Metoprolol Succinate Succinate t} Succinate ER 25 MG ER 25 MG ER 25 MG Aspirin 81 Aspirin 81 No 1{table QD Aspirin 81 MG MG t} MG Vitamin D3 Vitamin D3 No Vitamin D3 Atorvastati Atorvastati No Atorvastat n Calcium n Calcium in Calcium 40 MG 40 MG 40 MG HYDROcodone HYDROcodone No HYDROcodon -Acetaminop -Acetaminop e-Acetamin hen 10-325 hen 10-325 ophen MG MG 10-325 MG Methocarbam Methocarbam No Methocarba ol 500 MG ol 500 MG mol 500 MG Docusate Docusate No 1{table BID Docusate Sodium 100 Sodium 100 t_as_ne Sodium 100 MG MG eded} MG Multivitami Multivitami No Multivitam n n in Ursodiol Ursodiol No Ursodiol 300 MG 300 MG 300 MG Lunesta 3 Lunesta 3 No 1{table QD Lunesta 3 MG MG t_immed MG iately_ before_ bedtime } Zinc Zinc No Zinc Fish Oil Fish Oil No Fish Oil Multi Multi No Multi Vitamin Vitamin Vitamin Eszopiclone Eszopiclone No Eszopiclon 2 MG 2 MG e 2 MG Ginkgo Ginkgo No Ginkgo Meloxicam Meloxicam No Meloxicam 15 MG 15 MG 15 MG Lisinopril Lisinopril No Lisinopril 2.5 MG 2.5 MG 2.5 MG Multivitami Multivitami No Multivitam n n in HYDROcodone HYDROcodone No HYDROcodon -Acetaminop -Acetaminop e-Acetamin hen 10-325 hen 10-325 ophen MG MG 10-325 MG Ursodiol Ursodiol No 1{capsu BID Ursodiol 300 MG 300 MG les} 300 MG Diazepam 5 Diazepam 5 No 1{table TID Diazepam 5 MG MG t_as_ne MG eded} Aspirin 81 Aspirin 81 No 1{table QD Aspirin 81 MG MG t} MG Melatonin Melatonin No Melatonin Meloxicam Meloxicam No Meloxicam 15 MG 15 MG 15 MG Vitamin D3 Vitamin D3 No Vitamin D3 Fish Oil Fish Oil No Fish Oil Multi Multi No Multi Vitamin Vitamin Vitamin Atorvastati Atorvastati No 1{table QD Atorvastat n Calcium n Calcium t} in Calcium 40 MG 40 MG 40 MG Docusate Docusate No 1{table BID Docusate Sodium 100 Sodium 100 t_as_ne Sodium 100 MG MG eded} MG traMADol traMADol No traMADol HCl 50 MG HCl 50 MG HCl 50 MG Metoprolol Metoprolol No 1{table QD Metoprolol Succinate Succinate t} Succinate ER 25 MG ER 25 MG ER 25 MG Eszopiclone Eszopiclone No Eszopiclon 2 MG 2 MG e 2 MG Vitamin B Vitamin B No Vitamin B Complex Complex Complex Atorvastati Atorvastati No Atorvastat n Calcium n Calcium in Calcium 40 MG 40 MG 40 MG Zinc Zinc No Zinc Methocarbam Methocarbam No Methocarba ol 500 MG ol 500 MG mol 500 MG Ginkgo Ginkgo No Ginkgo Lunesta 3 Lunesta 3 No 1{table QD Lunesta 3 MG MG t_immed MG iately_ before_ bedtime } Lisinopril Lisinopril No Lisinopril 2.5 MG 2.5 MG 2.5 MG Ursodiol Ursodiol No Ursodiol 300 MG 300 MG 300 MG Multivitami Multivitami No Multivitam n n in HYDROcodone HYDROcodone No HYDROcodon -Acetaminop -Acetaminop e-Acetamin hen 10-325 hen 10-325 ophen MG MG 10-325 MG Ursodiol Ursodiol No 1{capsu BID Ursodiol 300 MG 300 MG les} 300 MG Diazepam 5 Diazepam 5 No 1{table TID Diazepam 5 MG MG t_as_ne MG eded} Aspirin 81 Aspirin 81 No 1{table QD Aspirin 81 MG MG t} MG Melatonin Melatonin No Melatonin Meloxicam Meloxicam No Meloxicam 15 MG 15 MG 15 MG Vitamin D3 Vitamin D3 No Vitamin D3 Fish Oil Fish Oil No Fish Oil Multi Multi No Multi Vitamin Vitamin Vitamin Atorvastati Atorvastati No 1{table QD Atorvastat n Calcium n Calcium t} in Calcium 40 MG 40 MG 40 MG Docusate Docusate No 1{table BID Docusate Sodium 100 Sodium 100 t_as_ne Sodium 100 MG MG eded} MG traMADol traMADol No traMADol HCl 50 MG HCl 50 MG HCl 50 MG Metoprolol Metoprolol No 1{table QD Metoprolol Succinate Succinate t} Succinate ER 25 MG ER 25 MG ER 25 MG Eszopiclone Eszopiclone No Eszopiclon 2 MG 2 MG e 2 MG Vitamin B Vitamin B No Vitamin B Complex Complex Complex Atorvastati Atorvastati No Atorvastat n Calcium n Calcium in Calcium 40 MG 40 MG 40 MG Zinc Zinc No Zinc Methocarbam Methocarbam No Methocarba ol 500 MG ol 500 MG mol 500 MG Ginkgo Ginkgo No Ginkgo Lunesta 3 Lunesta 3 No 1{table QD Lunesta 3 MG MG t_immed MG iately_ before_ bedtime } Lisinopril Lisinopril No Lisinopril 2.5 MG 2.5 MG 2.5 MG Ursodiol Ursodiol No Ursodiol 300 MG 300 MG 300 MG Multivitami Multivitami No Multivitam n n in HYDROcodone HYDROcodone No HYDROcodon -Acetaminop -Acetaminop e-Acetamin hen 10-325 hen 10-325 ophen MG MG 10-325 MG Ursodiol Ursodiol No 1{capsu BID Ursodiol 300 MG 300 MG les} 300 MG Diazepam 5 Diazepam 5 No 1{table TID Diazepam 5 MG MG t_as_ne MG eded} Aspirin 81 Aspirin 81 No 1{table QD Aspirin 81 MG MG t} MG Melatonin Melatonin No Melatonin Meloxicam Meloxicam No Meloxicam 15 MG 15 MG 15 MG Vitamin D3 Vitamin D3 No Vitamin D3 Fish Oil Fish Oil No Fish Oil Multi Multi No Multi Vitamin Vitamin Vitamin Atorvastati Atorvastati No 1{table QD Atorvastat n Calcium n Calcium t} in Calcium 40 MG 40 MG 40 MG Docusate Docusate No 1{table BID Docusate Sodium 100 Sodium 100 t_as_ne Sodium 100 MG MG eded} MG traMADol traMADol No traMADol HCl 50 MG HCl 50 MG HCl 50 MG Metoprolol Metoprolol No 1{table QD Metoprolol Succinate Succinate t} Succinate ER 25 MG ER 25 MG ER 25 MG Eszopiclone Eszopiclone No Eszopiclon 2 MG 2 MG e 2 MG Vitamin B Vitamin B No Vitamin B Complex Complex Complex Atorvastati Atorvastati No Atorvastat n Calcium n Calcium in Calcium 40 MG 40 MG 40 MG Zinc Zinc No Zinc Methocarbam Methocarbam No Methocarba ol 500 MG ol 500 MG mol 500 MG Ginkgo Ginkgo No Ginkgo Lunesta 3 Lunesta 3 No 1{table QD Lunesta 3 MG MG t_immed MG iately_ before_ bedtime } Lisinopril Lisinopril No Lisinopril 2.5 MG 2.5 MG 2.5 MG Ursodiol Ursodiol No Ursodiol 300 MG 300 MG 300 MG Lisinopril Lisinopril No Lisinopril 2.5 MG 2.5 MG 2.5 MG Multi Multi No Multi Vitamin Vitamin Vitamin Aspirin 81 Aspirin 81 No 1{table QD Aspirin 81 MG MG t} MG Ginkgo Ginkgo No Ginkgo Meloxicam Meloxicam No Meloxicam 15 MG 15 MG 15 MG Vitamin D3 Vitamin D3 No Vitamin D3 Metoprolol Metoprolol No 1{table QD Metoprolol Succinate Succinate t} Succinate ER 25 MG ER 25 MG ER 25 MG Fish Oil Fish Oil No Fish Oil Diazepam 5 Diazepam 5 No 1{table TID Diazepam 5 MG MG t_as_ne MG eded} Docusate Docusate No 1{table BID Docusate Sodium 100 Sodium 100 t_as_ne Sodium 100 MG MG eded} MG HYDROcodone HYDROcodone No HYDROcodon -Acetaminop -Acetaminop e-Acetamin hen 10-325 hen 10-325 ophen MG MG 10-325 MG Eszopiclone Eszopiclone No Eszopiclon 2 MG 2 MG e 2 MG Atorvastati Atorvastati No Atorvastat n Calcium n Calcium in Calcium 40 MG 40 MG 40 MG Ursodiol Ursodiol No 1{capsu BID Ursodiol 300 MG 300 MG les} 300 MG Lunesta 3 Lunesta 3 No 1{table QD Lunesta 3 MG MG t_immed MG iately_ before_ bedtime } Ursodiol Ursodiol No Ursodiol 300 MG 300 MG 300 MG Atorvastati Atorvastati No 1{table QD Atorvastat n Calcium n Calcium t} in Calcium 40 MG 40 MG 40 MG Multivitami Multivitami No Multivitam n n in Melatonin Melatonin No Melatonin traMADol traMADol No traMADol HCl 50 MG HCl 50 MG HCl 50 MG Vitamin B Vitamin B No Vitamin B Complex Complex Complex Zinc Zinc No Zinc Methocarbam Methocarbam No Methocarba ol 500 MG ol 500 MG mol 500 MG Lisinopril Lisinopril No Lisinopril 2.5 MG 2.5 MG 2.5 MG Multi Multi No Multi Vitamin Vitamin Vitamin Aspirin 81 Aspirin 81 No 1{table QD Aspirin 81 MG MG t} MG Ginkgo Ginkgo No Ginkgo Meloxicam Meloxicam No Meloxicam 15 MG 15 MG 15 MG Vitamin D3 Vitamin D3 No Vitamin D3 Metoprolol Metoprolol No 1{table QD Metoprolol Succinate Succinate t} Succinate ER 25 MG ER 25 MG ER 25 MG Fish Oil Fish Oil No Fish Oil Diazepam 5 Diazepam 5 No 1{table TID Diazepam 5 MG MG t_as_ne MG eded} Docusate Docusate No 1{table BID Docusate Sodium 100 Sodium 100 t_as_ne Sodium 100 MG MG eded} MG HYDROcodone HYDROcodone No HYDROcodon -Acetaminop -Acetaminop e-Acetamin hen 10-325 hen 10-325 ophen MG MG 10-325 MG Eszopiclone Eszopiclone No Eszopiclon 2 MG 2 MG e 2 MG Atorvastati Atorvastati No Atorvastat n Calcium n Calcium in Calcium 40 MG 40 MG 40 MG Ursodiol Ursodiol No 1{capsu BID Ursodiol 300 MG 300 MG les} 300 MG Lunesta 3 Lunesta 3 No 1{table QD Lunesta 3 MG MG t_immed MG iately_ before_ bedtime } Ursodiol Ursodiol No Ursodiol 300 MG 300 MG 300 MG Atorvastati Atorvastati No 1{table QD Atorvastat n Calcium n Calcium t} in Calcium 40 MG 40 MG 40 MG Multivitami Multivitami No Multivitam n n in Melatonin Melatonin No Melatonin traMADol traMADol No traMADol HCl 50 MG HCl 50 MG HCl 50 MG Vitamin B Vitamin B No Vitamin B Complex Complex Complex Zinc Zinc No Zinc Methocarbam Methocarbam No Methocarba ol 500 MG ol 500 MG mol 500 MG Lisinopril Lisinopril No Lisinopril 2.5 MG 2.5 MG 2.5 MG Multi Multi No Multi Vitamin Vitamin Vitamin Aspirin 81 Aspirin 81 No 1{table QD Aspirin 81 MG MG t} MG Ginkgo Ginkgo No Ginkgo Meloxicam Meloxicam No Meloxicam 15 MG 15 MG 15 MG Vitamin D3 Vitamin D3 No Vitamin D3 Metoprolol Metoprolol No 1{table QD Metoprolol Succinate Succinate t} Succinate ER 25 MG ER 25 MG ER 25 MG Fish Oil Fish Oil No Fish Oil Diazepam 5 Diazepam 5 No 1{table TID Diazepam 5 MG MG t_as_ne MG eded} Docusate Docusate No 1{table BID Docusate Sodium 100 Sodium 100 t_as_ne Sodium 100 MG MG eded} MG HYDROcodone HYDROcodone No HYDROcodon -Acetaminop -Acetaminop e-Acetamin hen 10-325 hen 10-325 ophen MG MG 10-325 MG Eszopiclone Eszopiclone No Eszopiclon 2 MG 2 MG e 2 MG Atorvastati Atorvastati No Atorvastat n Calcium n Calcium in Calcium 40 MG 40 MG 40 MG Ursodiol Ursodiol No 1{capsu BID Ursodiol 300 MG 300 MG les} 300 MG Lunesta 3 Lunesta 3 No 1{table QD Lunesta 3 MG MG t_immed MG iately_ before_ bedtime } Ursodiol Ursodiol No Ursodiol 300 MG 300 MG 300 MG Atorvastati Atorvastati No 1{table QD Atorvastat n Calcium n Calcium t} in Calcium 40 MG 40 MG 40 MG Multivitami Multivitami No Multivitam n n in Melatonin Melatonin No Melatonin traMADol traMADol No traMADol HCl 50 MG HCl 50 MG HCl 50 MG Vitamin B Vitamin B No Vitamin B Complex Complex Complex Zinc Zinc No Zinc Methocarbam Methocarbam No Methocarba ol 500 MG ol 500 MG mol 500 MG Metoprolol Metoprolol No 1{table QD Metoprolol Succinate Succinate t} Succinate ER 25 MG ER 25 MG ER 25 MG Fish Oil Fish Oil No Fish Oil Lisinopril Lisinopril No Lisinopril 2.5 MG 2.5 MG 2.5 MG Multi Multi No Multi Vitamin Vitamin Vitamin Meloxicam Meloxicam No Meloxicam 15 MG 15 MG 15 MG Vitamin D3 Vitamin D3 No Vitamin D3 Lunesta 3 Lunesta 3 No 1{table QD Lunesta 3 MG MG t_immed MG iately_ before_ bedtime } Ursodiol Ursodiol No 1{capsu BID Ursodiol 300 MG 300 MG les} 300 MG Diazepam 5 Diazepam 5 No 1{table TID Diazepam 5 MG MG t_as_ne MG eded} HYDROcodone HYDROcodone No HYDROcodon -Acetaminop -Acetaminop e-Acetamin hen 10-325 hen 10-325 ophen MG MG 10-325 MG Atorvastati Atorvastati No 1{table QD Atorvastat n Calcium n Calcium t} in Calcium 40 MG 40 MG 40 MG Ursodiol Ursodiol No Ursodiol 300 MG 300 MG 300 MG Multivitami Multivitami No Multivitam n n in Eszopiclone Eszopiclone No Eszopiclon 2 MG 2 MG e 2 MG Atorvastati Atorvastati No Atorvastat n Calcium n Calcium in Calcium 40 MG 40 MG 40 MG Ginkgo Ginkgo No Ginkgo Aspirin 81 Aspirin 81 No 1{table QD Aspirin 81 MG MG t} MG Docusate Docusate No 1{table BID Docusate Sodium 100 Sodium 100 t_as_ne Sodium 100 MG MG eded} MG Melatonin Melatonin No Melatonin traMADol traMADol No traMADol HCl 50 MG HCl 50 MG HCl 50 MG Vitamin B Vitamin B No Vitamin B Complex Complex Complex Zinc Zinc No Zinc Methocarbam Methocarbam No Methocarba ol 500 MG ol 500 MG mol 500 MG Metoprolol Metoprolol No 1{table QD Metoprolol Succinate Succinate t} Succinate ER 25 MG ER 25 MG ER 25 MG Fish Oil Fish Oil No Fish Oil Lisinopril Lisinopril No Lisinopril 2.5 MG 2.5 MG 2.5 MG Multi Multi No Multi Vitamin Vitamin Vitamin Meloxicam Meloxicam No Meloxicam 15 MG 15 MG 15 MG Vitamin D3 Vitamin D3 No Vitamin D3 Lunesta 3 Lunesta 3 No 1{table QD Lunesta 3 MG MG t_immed MG iately_ before_ bedtime } Ursodiol Ursodiol No 1{capsu BID Ursodiol 300 MG 300 MG les} 300 MG Diazepam 5 Diazepam 5 No 1{table TID Diazepam 5 MG MG t_as_ne MG eded} HYDROcodone HYDROcodone No HYDROcodon -Acetaminop -Acetaminop e-Acetamin hen 10-325 hen 10-325 ophen MG MG 10-325 MG Atorvastati Atorvastati No 1{table QD Atorvastat n Calcium n Calcium t} in Calcium 40 MG 40 MG 40 MG Ursodiol Ursodiol No Ursodiol 300 MG 300 MG 300 MG Multivitami Multivitami No Multivitam n n in Eszopiclone Eszopiclone No Eszopiclon 2 MG 2 MG e 2 MG Atorvastati Atorvastati No Atorvastat n Calcium n Calcium in Calcium 40 MG 40 MG 40 MG Ginkgo Ginkgo No Ginkgo Aspirin 81 Aspirin 81 No 1{table QD Aspirin 81 MG MG t} MG Docusate Docusate No 1{table BID Docusate Sodium 100 Sodium 100 t_as_ne Sodium 100 MG MG eded} MG Melatonin Melatonin No Melatonin traMADol traMADol No traMADol HCl 50 MG HCl 50 MG HCl 50 MG Vitamin B Vitamin B No Vitamin B Complex Complex Complex Zinc Zinc No Zinc Methocarbam Methocarbam No Methocarba ol 500 MG ol 500 MG mol 500 MG Diazepam 5 Diazepam 5 No 1{table TID Diazepam 5 MG MG t_as_ne MG eded} Melatonin Melatonin No Melatonin Eszopiclone Eszopiclone No Eszopiclon 2 MG 2 MG e 2 MG Vitamin B Vitamin B No Vitamin B Complex Complex Complex Docusate Docusate No 1{table BID Docusate Sodium 100 Sodium 100 t_as_ne Sodium 100 MG MG eded} MG traMADol traMADol No traMADol HCl 50 MG HCl 50 MG HCl 50 MG HYDROcodone HYDROcodone No HYDROcodon -Acetaminop -Acetaminop e-Acetamin hen 10-325 hen 10-325 ophen MG MG 10-325 MG Zinc Zinc No Zinc Multi Multi No Multi Vitamin Vitamin Vitamin Ginkgo Ginkgo No Ginkgo Ursodiol Ursodiol No 1{capsu BID Ursodiol 300 MG 300 MG les} 300 MG Lisinopril Lisinopril No Lisinopril 2.5 MG 2.5 MG 2.5 MG Atorvastati Atorvastati No Atorvastat n Calcium n Calcium in Calcium 40 MG 40 MG 40 MG Aspirin 81 Aspirin 81 No 1{table QD Aspirin 81 MG MG t} MG Lunesta 3 Lunesta 3 No 1{table QD Lunesta 3 MG MG t_immed MG iately_ before_ bedtime } Ursodiol Ursodiol No Ursodiol 300 MG 300 MG 300 MG Metoprolol Metoprolol No Metoprolol Succinate Succinate Succinate ER 25 MG ER 25 MG ER 25 MG Fish Oil Fish Oil No Fish Oil Meloxicam Meloxicam No Meloxicam 15 MG 15 MG 15 MG Vitamin D3 Vitamin D3 No Vitamin D3 Methocarbam Methocarbam No Methocarba ol 500 MG ol 500 MG mol 500 MG Metoprolol Metoprolol No 1{table QD Metoprolol Succinate Succinate t} Succinate ER 25 MG ER 25 MG ER 25 MG Multivitami Multivitami No Multivitam n n in Atorvastati Atorvastati No 1{table QD Atorvastat n Calcium n Calcium t} in Calcium 40 MG 40 MG 40 MG Diazepam 5 Diazepam 5 No 1{table TID Diazepam 5 MG MG t_as_ne MG eded} Melatonin Melatonin No Melatonin Eszopiclone Eszopiclone No Eszopiclon 2 MG 2 MG e 2 MG Vitamin B Vitamin B No Vitamin B Complex Complex Complex Docusate Docusate No 1{table BID Docusate Sodium 100 Sodium 100 t_as_ne Sodium 100 MG MG eded} MG traMADol traMADol No traMADol HCl 50 MG HCl 50 MG HCl 50 MG HYDROcodone HYDROcodone No HYDROcodon -Acetaminop -Acetaminop e-Acetamin hen 10-325 hen 10-325 ophen MG MG 10-325 MG Zinc Zinc No Zinc Multi Multi No Multi Vitamin Vitamin Vitamin Ginkgo Ginkgo No Ginkgo Ursodiol Ursodiol No 1{capsu BID Ursodiol 300 MG 300 MG les} 300 MG Lisinopril Lisinopril No Lisinopril 2.5 MG 2.5 MG 2.5 MG Atorvastati Atorvastati No Atorvastat n Calcium n Calcium in Calcium 40 MG 40 MG 40 MG Aspirin 81 Aspirin 81 No 1{table QD Aspirin 81 MG MG t} MG Lunesta 3 Lunesta 3 No 1{table QD Lunesta 3 MG MG t_immed MG iately_ before_ bedtime } Ursodiol Ursodiol No Ursodiol 300 MG 300 MG 300 MG Metoprolol Metoprolol No Metoprolol Succinate Succinate Succinate ER 25 MG ER 25 MG ER 25 MG Fish Oil Fish Oil No Fish Oil Meloxicam Meloxicam No Meloxicam 15 MG 15 MG 15 MG Vitamin D3 Vitamin D3 No Vitamin D3 Methocarbam Methocarbam No Methocarba ol 500 MG ol 500 MG mol 500 MG Metoprolol Metoprolol No 1{table QD Metoprolol Succinate Succinate t} Succinate ER 25 MG ER 25 MG ER 25 MG Multivitami Multivitami No Multivitam n n in Atorvastati Atorvastati No 1{table QD Atorvastat n Calcium n Calcium t} in Calcium 40 MG 40 MG 40 MG Lunesta 3 Lunesta 3 No 1{table QD Lunesta 3 MG MG t_immed MG iately_ before_ bedtime } Melatonin Melatonin No Melatonin Methocarbam Methocarbam No Methocarba ol 500 MG ol 500 MG mol 500 MG Metoprolol Metoprolol No 1{table QD Metoprolol Succinate Succinate t} Succinate ER 25 MG ER 25 MG ER 25 MG Vitamin B Vitamin B No Vitamin B Complex Complex Complex Atorvastati Atorvastati No 1{table QD Atorvastat n Calcium n Calcium t} in Calcium 40 MG 40 MG 40 MG Fish Oil Fish Oil No Fish Oil Aspirin 81 Aspirin 81 No 1{table QD Aspirin 81 MG MG t} MG Meloxicam Meloxicam No Meloxicam 15 MG 15 MG 15 MG Docusate Docusate No 1{table BID Docusate Sodium 100 Sodium 100 t_as_ne Sodium 100 MG MG eded} MG Ginkgo Ginkgo No Ginkgo traMADol traMADol No traMADol HCl 50 MG HCl 50 MG HCl 50 MG Multivitami Multivitami No Multivitam n n in Diazepam 5 Diazepam 5 No 1{table TID Diazepam 5 MG MG t_as_ne MG eded} Multi Multi No Multi Vitamin Vitamin Vitamin Ursodiol Ursodiol No Ursodiol 300 MG 300 MG 300 MG Lisinopril Lisinopril No Lisinopril 2.5 MG 2.5 MG 2.5 MG Eszopiclone Eszopiclone No Eszopiclon 2 MG 2 MG e 2 MG HYDROcodone HYDROcodone No HYDROcodon -Acetaminop -Acetaminop e-Acetamin hen 10-325 hen 10-325 ophen MG MG 10-325 MG Atorvastati Atorvastati No Atorvastat n Calcium n Calcium in Calcium 40 MG 40 MG 40 MG Ursodiol Ursodiol No 1{capsu BID Ursodiol 300 MG 300 MG les} 300 MG Metoprolol Metoprolol No Metoprolol Succinate Succinate Succinate ER 25 MG ER 25 MG ER 25 MG Zinc Zinc No Zinc Vitamin D3 Vitamin D3 No Vitamin D3 Lunesta 3 Lunesta 3 No 1{table QD Lunesta 3 MG MG t_immed MG iately_ before_ bedtime } Melatonin Melatonin No Melatonin Methocarbam Methocarbam No Methocarba ol 500 MG ol 500 MG mol 500 MG Metoprolol Metoprolol No 1{table QD Metoprolol Succinate Succinate t} Succinate ER 25 MG ER 25 MG ER 25 MG Vitamin B Vitamin B No Vitamin B Complex Complex Complex Atorvastati Atorvastati No 1{table QD Atorvastat n Calcium n Calcium t} in Calcium 40 MG 40 MG 40 MG Fish Oil Fish Oil No Fish Oil Aspirin 81 Aspirin 81 No 1{table QD Aspirin 81 MG MG t} MG Meloxicam Meloxicam No Meloxicam 15 MG 15 MG 15 MG Docusate Docusate No 1{table BID Docusate Sodium 100 Sodium 100 t_as_ne Sodium 100 MG MG eded} MG Ginkgo Ginkgo No Ginkgo traMADol traMADol No traMADol HCl 50 MG HCl 50 MG HCl 50 MG Multivitami Multivitami No Multivitam n n in Diazepam 5 Diazepam 5 No 1{table TID Diazepam 5 MG MG t_as_ne MG eded} Multi Multi No Multi Vitamin Vitamin Vitamin Ursodiol Ursodiol No Ursodiol 300 MG 300 MG 300 MG Lisinopril Lisinopril No Lisinopril 2.5 MG 2.5 MG 2.5 MG Eszopiclone Eszopiclone No Eszopiclon 2 MG 2 MG e 2 MG HYDROcodone HYDROcodone No HYDROcodon -Acetaminop -Acetaminop e-Acetamin hen 10-325 hen 10-325 ophen MG MG 10-325 MG Atorvastati Atorvastati No Atorvastat n Calcium n Calcium in Calcium 40 MG 40 MG 40 MG Ursodiol Ursodiol No 1{capsu BID Ursodiol 300 MG 300 MG les} 300 MG Metoprolol Metoprolol No Metoprolol Succinate Succinate Succinate ER 25 MG ER 25 MG ER 25 MG Zinc Zinc No Zinc Vitamin D3 Vitamin D3 No Vitamin D3 Lunesta 3 Lunesta 3 No 1{table QD Lunesta 3 MG MG t_immed MG iately_ before_ bedtime } Melatonin Melatonin No Melatonin Methocarbam Methocarbam No Methocarba ol 500 MG ol 500 MG mol 500 MG Metoprolol Metoprolol No 1{table QD Metoprolol Succinate Succinate t} Succinate ER 25 MG ER 25 MG ER 25 MG Vitamin B Vitamin B No Vitamin B Complex Complex Complex Atorvastati Atorvastati No 1{table QD Atorvastat n Calcium n Calcium t} in Calcium 40 MG 40 MG 40 MG Fish Oil Fish Oil No Fish Oil Aspirin 81 Aspirin 81 No 1{table QD Aspirin 81 MG MG t} MG Meloxicam Meloxicam No Meloxicam 15 MG 15 MG 15 MG Docusate Docusate No 1{table BID Docusate Sodium 100 Sodium 100 t_as_ne Sodium 100 MG MG eded} MG Ginkgo Ginkgo No Ginkgo traMADol traMADol No traMADol HCl 50 MG HCl 50 MG HCl 50 MG Multivitami Multivitami No Multivitam n n in Diazepam 5 Diazepam 5 No 1{table TID Diazepam 5 MG MG t_as_ne MG eded} Multi Multi No Multi Vitamin Vitamin Vitamin Ursodiol Ursodiol No Ursodiol 300 MG 300 MG 300 MG Lisinopril Lisinopril No Lisinopril 2.5 MG 2.5 MG 2.5 MG Eszopiclone Eszopiclone No Eszopiclon 2 MG 2 MG e 2 MG HYDROcodone HYDROcodone No HYDROcodon -Acetaminop -Acetaminop e-Acetamin hen 10-325 hen 10-325 ophen MG MG 10-325 MG Atorvastati Atorvastati No Atorvastat n Calcium n Calcium in Calcium 40 MG 40 MG 40 MG Ursodiol Ursodiol No 1{capsu BID Ursodiol 300 MG 300 MG les} 300 MG Metoprolol Metoprolol No Metoprolol Succinate Succinate Succinate ER 25 MG ER 25 MG ER 25 MG Zinc Zinc No Zinc Vitamin D3 Vitamin D3 No Vitamin D3 Lunesta 3 Lunesta 3 No 1{table QD Lunesta 3 MG MG t_immed MG iately_ before_ bedtime } Melatonin Melatonin No Melatonin Methocarbam Methocarbam No Methocarba ol 500 MG ol 500 MG mol 500 MG Metoprolol Metoprolol No 1{table QD Metoprolol Succinate Succinate t} Succinate ER 25 MG ER 25 MG ER 25 MG Vitamin B Vitamin B No Vitamin B Complex Complex Complex Atorvastati Atorvastati No 1{table QD Atorvastat n Calcium n Calcium t} in Calcium 40 MG 40 MG 40 MG Fish Oil Fish Oil No Fish Oil Aspirin 81 Aspirin 81 No 1{table QD Aspirin 81 MG MG t} MG Meloxicam Meloxicam No Meloxicam 15 MG 15 MG 15 MG Docusate Docusate No 1{table BID Docusate Sodium 100 Sodium 100 t_as_ne Sodium 100 MG MG eded} MG Ginkgo Ginkgo No Ginkgo traMADol traMADol No traMADol HCl 50 MG HCl 50 MG HCl 50 MG Multivitami Multivitami No Multivitam n n in Diazepam 5 Diazepam 5 No 1{table TID Diazepam 5 MG MG t_as_ne MG eded} Multi Multi No Multi Vitamin Vitamin Vitamin Ursodiol Ursodiol No Ursodiol 300 MG 300 MG 300 MG Lisinopril Lisinopril No Lisinopril 2.5 MG 2.5 MG 2.5 MG Eszopiclone Eszopiclone No Eszopiclon 2 MG 2 MG e 2 MG HYDROcodone HYDROcodone No HYDROcodon -Acetaminop -Acetaminop e-Acetamin hen 10-325 hen 10-325 ophen MG MG 10-325 MG Atorvastati Atorvastati No Atorvastat n Calcium n Calcium in Calcium 40 MG 40 MG 40 MG Ursodiol Ursodiol No 1{capsu BID Ursodiol 300 MG 300 MG les} 300 MG Metoprolol Metoprolol No Metoprolol Succinate Succinate Succinate ER 25 MG ER 25 MG ER 25 MG Zinc Zinc No Zinc Vitamin D3 Vitamin D3 No Vitamin D3 Multivitami Multivitami No Multivitam n n in Multi Multi No Multi Vitamin Vitamin Vitamin Docusate Docusate No 1{table BID Docusate Sodium 100 Sodium 100 t_as_ne Sodium 100 MG MG eded} MG Fish Oil Fish Oil No Fish Oil Lunesta 3 Lunesta 3 No 1{table QD Lunesta 3 MG MG t_immed MG iately_ before_ bedtime } traMADol traMADol No traMADol HCl 50 MG HCl 50 MG HCl 50 MG Immunizations Ordered Immunization Filled Immunization Date Status Commen ts Source Name Name Fluzone Fluzone 2021-07-30 [facility] Fluzone Fluzone 2021-07-30 [facility] 09:18:00 - [facility] Fluzone Fluzone 2021-07-30 Completed [facility] 09:18:00 - [facility] Fluzone Fluzone 2021-07-30 Completed [facility] 09:18:00 - [facility] Fluzone Fluzone 2021-07-30 Completed [facility] 09:18:00 - [facility] Fluzone Fluzone 2021-07-30 Completed [facility] 09:18:00 - [facility] Fluzone Fluzone 2021-07-30 Completed [facility] 09:18:00 - [facility] Fluzone Fluzone 2021-07-30 Completed [facility] 09:18:00 - [facility] Fluzone Fluzone 2021-07-30 Completed [facility] 09:18:00 - [facility] Fluzone Fluzone 2021-07-30 Completed [facility] 09:18:00 - [facility] Fluzone Fluzone 2021-07-30 Completed [facility] 09:18:00 - [facility] Fluzone Fluzone 2021-07-30 Completed [facility] 09:18:00 - [facility] Fluzone Fluzone 2021-07-30 Completed [facility] 09:18:00 - [facility] Fluzone Fluzone 2021-07-30 Completed [facility] 09:18:00 - [facility] Fluzone Fluzone 2021-07-30 Completed [facility] 09:18:00 - [facility] Fluzone Fluzone 2021-07-30 Completed [facility] 09:18:00 - [facility] Fluzone Fluzone 2021-07-30 Completed [facility] 09:18:00 - [facility] Fluzone Fluzone 2021-07-30 Completed [facility] 09:18:00 - [facility] Fluzone Fluzone 2021-07-30 Completed [facility] 09:18:00 - [facility] Fluzone Fluzone 2021-07-30 Completed [facility] 09:18:00 - [facility] Fluzone Fluzone 2021-07-30 Completed [facility] 09:18:00 - [facility] Fluzone Fluzone 2021-07-30 Completed [facility] 09:18:00 - [facility] Fluzone Fluzone 2021-07-30 Completed [facility] 09:18:00 - [facility] Fluzone Fluzone 2021-07-30 Completed [facility] 09:18:00 - [facility] Influenza, seasonal, 2021-07-30 [facility]:00 FluAD FluAD 2020-06-18 Completed [facility] 16:25:00 - [facility] FluAD FluAD 2020-06-18 Completed [facility] 16::00 - [facility] FluAD FluAD 2020-06-18 Completed [facility] 16:25:00 - [facility] FluAD FluAD 2020-06-18 Completed [facility] 16::00 - [facility] FluAD FluAD 2020-06-18 Completed [facility] 16:25:00 - [facility] FluAD FluAD 2020-06-18 Completed [facility] 16:25:00 - [facility] FluAD FluAD 2020-06-18 Completed [facility] 16:25:00 - [facility] FluAD FluAD 2020-06-18 Completed [facility] 16:25:00 - [facility] FluAD FluAD 2020-06-18 Completed [facility] 16::00 - [facility] FluAD FluAD 2020-06-18 Completed [facility] 16:25: - [facility] FluAD FluAD 2020-06-18 Completed [facility] 16:: - [facility] FluAD FluAD 2020-06-18 Completed [facility] 16:: - [facility] FluAD FluAD 2020-06-18 Completed [facility] 16::00 - [facility] FluAD FluAD 2020-06-18 Completed [facility] 16::00 - [facility] FluAD FluAD 2020-06-18 Completed [facility] 16::00 - [facility] FluAD FluAD 2020-06-18 Completed [facility] 16:: - [facility] FluAD FluAD 2020-06-18 Completed [facility] 16:: - [facility] FluAD FluAD 2020-06-18 Completed [facility] 16:: - [facility] FluAD FluAD 2020-06-18 Completed [facility] 16:: - [facility] FluAD FluAD 2020-06-18 Completed [facility] 16:: - [facility] FluAD FluAD 2020-06-18 Completed [facility] 16:: - [facility] FluAD FluAD 2020-06-18 Completed [facility] 16:: - [facility] FluAD FluAD 2020-06-18 Completed [facility] 16:: - [facility] FluAD FluAD 2020-06-18 Completed [facility] 16::00 - [facility] FluAD FluAD 2020-06-18 Completed [facility] 16::00 - [facility] FluAD FluAD 2020-06-18 Completed [facility] 16::00 - [facility] Influenza, 2020-06-18 Completed [facility], 00:00:00 quadrivalent, adjuvanted (fluad) Influenza, seasonal, 2014-08-06 Completed [facility] 00:00:00 Vital Signs Vital Name Observation Time Observation Value Comments Source height 2022 09:20:00 71 [in_i] [facility] weight 2022 09:20:00 237 [lb_av] [facility] temperature 2022 09:20:00 98.8 [degF] [facility] bmi 2022 09:20:00 33.05 kg/m2 Common S [facility] oximetry 2022 09:20:00 79 % Common S [facility] respiratory rate 2022 09:20:00 18 /min Comm on [facility] blood pressure 2022 09:20:00 119 mm[Hg] Common [facility] - systolic [facility] blood pressure 2022 09:20:00 79 mm[Hg] Common [facility] - diastolic [facility] height 2022 08:40:00 71 [in_i] Common [facility] weight 2022 08:40:00 237 [lb_av] Common [facility] temperature 2022 08:40:00 98.8 [degF] Common [facility] bmi 2022 08:40:00 33.05 kg/m2 [facility] oximetry 2022 08:40:00 79 % Common [facility] respiratory rate 2022 08:40:00 18 /min Comm on [facility] blood pressure 2022 08:40:00 119 mm[Hg] Common [facility] - systolic [facility] blood pressure 2022 08:40:00 79 mm[Hg] Common [facility] - diastolic [facility] height 2022-01-16 16:20:00 71 [in_i] Common [facility] weight 2022-01-16 16:20:00 258 [lb_av] [facility] bmi 2022-01-16 16:20:00 35.98 kg/m2 [facility] Systolic blood 2021-11-14 14:40:00 143 mm[Hg] [facility] Diastolic blood 2021-11-14 14:40:00 90 mm[Hg] [facility] Heart rate 2021-11-14 14:40:00 54 /min [facility] temperature 2021-11-14 14:40:00 36.61 Jasmine [facility] height 2021-11-14 14:40:00 [facility]4 [facility] weight 2021-11-14 14:40:00 [facility]028 [facility] BMI 2021-11-14 14:40:00 34.04 kg[facility]m2 [facility] 2021-11-10 09:10:00 71 [in_i] [facility] weight 2021-11-10 09:10:00 257.7 [lb_av] [facility] temperature 2021-11-10 09:10:00 97.0 [degF] [facility] bmi 2021-11-10 09:10:00 35.94 kg/m2 [facility] oximetry 2021-11-10 09:10:00 100 % [facility] respiratory rate 2021-11-10 09:10:00 17 /min Comm on [facility] blood pressure 2021-11-10 09:10:00 129 mm[Hg] [facility] - systolic [facility] blood pressure 2021-11-10 09:10:00 78 mm[Hg] Common [facility] - diastolic [facility] height 2021-10-15 09:40:00 71 [in_i] [facility] weight 2021-10-15 09:40:00 250 [lb_av] [facility] temperature 2021-10-15 09:40:00 96.7 [degF] [facility] bmi 2021-10-15 09:40:00 34.86 kg/m2 [facility] height 2021-07-30 08:50:00 71 [in_i] [facility] weight 2021-07-30 08:50:00 257.8 [lb_av] [facility] temperature 2021-07-30 08:50:00 97.9 [degF] [facility] bmi 2021-07-30 08:50:00 35.95 kg/m2 [facility] oximetry 2021-07-30 08:50:00 97 % [facility] respiratory rate 2021-07-30 08:50:00 16 /min Comm on [facility] blood pressure 2021-07-30 08:50:00 135 mm[Hg] [facility] [place] [facility] blood pressure 2021-07-30 08:50:00 70 mm[Hg] [facility] [place] [facility] height 2021-06-27 10:00:00 71 [in_i] [facility] weight 2021-06-27 10:00:00 261.6 [lb_av] [facility] bmi 2021-06-27 10:00:00 36.48 kg/m2 [facility] Procedures This patient has no known procedures. Encounters Start End Encounter Admission Attending Care Care Encounter Source Date/Time Date/Time Type Type Clinicians Facility Department ID 2022-01-16 [facility] [id number] Common 11:06:01 Say [facility] 2021-11-10 Out[facility], [facility] [id number] Common 09:06:02 Say [facility] 2021-09-17 [facility] [id number] Common 13:11:25 Say [id number] [facility] 2021-09-17 Outpatient [place], [facility] [id number] Common 12:52:49 Say [id number] [facility] 2021-09-17 Outpatient [place], [facility] [id number] Common 12:36:59 Say [id number] [facility] 2021-09-17 Outpatient [place], [facility] [id number] Common 12:36:15 Say [id number] [facility] 2021-09-17 Outpatient [place], STLMLC ST[facility] [id number] Common 12:11:09 Say [id number] [facility] 2021-09-17 Outpatient [place], STLMLC STL[facility] [id number] Common 11:54:25 Say [id number] [facility] 2021-09-17 Outpatient [place], STLMLC STL[facility] [id number] Common 11:52:11 Say [id number] [facility] 2021-09-17 Outpatient [place], STLMLC STL[facility]C [id number] Common 11:29:15 Say [id number] [facility] 2021-09-17 Outpatient [place], STLMLC STLMLC [id number] Common 11:24:04 Say [id number] [facility] 2021-09-17 Outpatient [place], STLMLC STLMLC [id number] Common 11:16:53 Say [id number] [facility] 2021-09-17 Outpatient [place], STLMLC STLMLC [id number] Common 11:16:45 Say [id number] [facility] 2020-12-28 Outpatient [facility] [id number] [place] 03:57:38 Health 2022-05-01 2022-05-01 (WEB) STLMLC STLMLC [id number] Co mmon 00:00:00 00:00:00 [facility]I [facility] 2022 2022 OFFICE STLMLC STLMLC [id number] Co mmon 00:00:00 00:00:00 VISIT [facility] ESTAB PT - CHI LEVEL 4 [facility] 2022 2022 SUB ANNUAL STLMLC STLMLC [id number] Common 00:00:00 00:00:00 [facility] WELLNESS - [facility]I VISIT [facility] 2022 2022 (TEL) STLMLC STLMLC [id number] Co mmon 00:00:00 00:00:00 [facility] 2022-04-22 2022-04-22 (TEL) STLMLC STLMLC [id number] Co mmon 00:00:00 00:00:00 [facility] 2022-04-07 2022-04-07 (TEL) STLMLC STLMLC [id number] Co mmon 00:00:00 00:00:00 [facility] 2022-01-26 2022-01-26 (WEB) STLMLC STLMLC [id number] Co mmon 00:00:00 00:00:00 [facility] 2022-01-20 2022-01-20 (WEB) STLMLC STLMLC [id number] Co mmon 00:00:00 00:00:00 [facility] 2022-01-17 2022-01-17 (WEB) STLMLC STLMLC [id number] Co mmon 00:00:00 00:00:00 [facility] 2022-01-16 2022-01-16 (TEL) STLMLC STLMLC [id number] Co mmon 00:00:00 00:00:00 [facility] 2022-01-16 2022-01-16 OL DIG E/M STLMLC STLMLC [id number] Common 00:00:00 00:00:00 [facility] 11-20 Spir it [facility] 2021-11-15 2021-11-15 (WEB) STLMLC STLMLC [id number] Co mmon 00:00:00 00:00:00 [facility] 2021-11-14 2021-11-14 KEENA Stoddard [id number] [place] 10:00:00 10:20:00 Visit [facility] [id number] [facility] [id number] SPECIALTY [phone] CLINIC 1 2021-11-10 2021-11-10 (TEL) STLMLC STLMLC [id number] Co mmon 00:00:00 00:00:00 [facility] 2021-11-10 2021-11-10 OFFICE STLMLC STLMLC [id number] Co mmon 00:00:00 00:00:00 VISIT Arturo [facility] LEVEL 4 [facility] 2021-10-31 2021-10-31 Letter JAYV Townsend [id number] [facility] 00:00:00 00:00:00 (Out) Cristal Lin DARLENE [id number] it y of [facility] [id number] Jeffrey as [id number] [facility] [address] 2021-10-30 2021-10-30 Laboratory Only, Gal Adult Uc Test [facility] [id number] Univers 16:00:00 16:15:00 Only Bert Andres [id number] ity of [id number] [id number] [facility] [address] 2021-10-30 2021-10-30 Outpatient R JANE [facility] [id number] Univers 16:00:00 16:08:14 BERT [facility] 2021-10-20 2021-10-20 (WEB) STLMLC STLMLC [id number] Co mmon 00:00:00 00:00:00 [facility] 2021-10-20 2021-10-20 (WEB) STLMLC STLMLC [id number] Co mmon 00:00:00 00:00:00 [facility] 2021-10-20 2021-10-20 (WEB) STLMLC STLMLC [id number] Co mmon 00:00:00 00:00:00 [facility] 2021-10-20 2021-10-20 (TEL) STLMLC STLMLC [id number] Co mmon 00:00:00 00:00:00 [facility] 2021-10-17 2021-10-17 (WEB) STLMLC STLMLC [id number] Co mmon 00:00:00 00:00:00 [facility] 2021-10-15 2021-10-15 OFFICE STLMLC STLMLC [id number] Co mmon 00:00:00 00:00:00 VISIT EST Spir it PT LEVEL 3 [facility] 2021-10-14 2021-10-14 (WEB) STLMLC STLMLC [id number] Co mmon 00:00:00 00:00:00 [facility] 2021-09-02 2021-09-02 (WEB) STLMLC STLMLC [id number] Co mmon 00:00:00 00:00:00 [facility] 2021-09-01 2021-09-01 (TEL) STLMLC STLMLC [id number] Co mmon 00:00:00 00:00:00 [facility] 2021-07-30 2021-07-30 OFFICE STLMLC STLMLC [id number] Co mmon 00:00:00 00:00:00 VISIT [facility] PT [facility] LEVEL 4 [facility] 2021-06-27 2021-06-27 (TEL) STLMLC STLMLC [id number] Co mmon 00:00:00 00:00:00 [facility] 2021-06-27 2021-06-27 OFFICE STLMLC STLMLC [id number] Co mmon 00:00:00 00:00:00 VISIT EST Spir it PT LEVEL 3 [facility] 2021-04-30 2021-04-30 Outpatient STLMLC STLMLC [id number] Common 00:00:00 00:00:00 [facility] 2021-03-06 2021-03-06 Outpatient STLMLC STLMLC [id number] Common 00:00:00 00:00:00 [facility] 2021-03-06 2021-03-06 Outpatient STLMLC STLMLC [id number] Common 00:00:00 00:00:00 [facility] 2021-01-31 2021-01-31 Telephone Monse Sheridan [id number] [place] 00:00:00 00:00:00 Monse Sheridan [id number] [facility] [id number] [place] [id number] [id number] 2021-01-28 2021-01-28 Outpatient STLMLC STLMLC [id number] Common 00:00:00 00:00:00 [facility] 2021-01-28 2021-01-28 Outpatient STLMLC STLMLC [id number] Common 00:00:00 00:00:00 [facility] 2020-10-28 2020-10-28 Outpatient STLMLC STLMLC [id number] Common 00:00:00 00:00:00 [facility] 2020-10-28 2020-10-28 Outpatient STLMLC STLMLC [id number] Common 00:00:00 00:00:00 [facility] 2020-07-29 2020-07-29 Outpatient STLMLC STLMLC [id number] Common 00:00:00 00:00:00 [facility] 2020-07-24 2020-07-24 Outpatient STLMLC STLMLC [id number] Common 00:00:00 00:00:00 [facility] 2020-06-11 2020-06-11 Outpatient STLMLC STLMLC [id number] Common 00:00:00 00:00:00 [facility] 2020-06-10 2020-06-10 Outpatient STLMLC STLMLC [id number] Common 00:00:00 00:00:00 [facility] 2020-06-04 2020-06-04 Outpatient STLMLC STLMLC [id number] Common 00:00:00 00:00:00 [facility] 2020-06-04 2020-06-04 Outpatient STLMLC STLMLC [id number] Common 00:00:00 00:00:00 [facility] 2020-06-03 2020-06-03 Outpatient STLMLC STLMLC [id number] Common 00:00:00 00:00:00 [facility] 2020-05-28 2020-05-28 Outpatient STLMLC STLMLC [id number] Common 00:00:00 00:00:00 [facility] 2020-05-28 2020-05-28 Outpatient STLMLC STLC [id number] Common 00:00:00 00:00:00 [facility] 2020-04-25 2020-04-25 [id number] Common 16:30:00 16:30:[address] [facility] 2020-04-17 2020-04-17 [id number] Common 12:22:00 12:22:[address] [facility] 2020-03-29 2020-03-29 [facility] [id number] Common 15:44:00 15:44:[address] [facility] 2020-03-28 2020-03-28 [facility] [id number] Common 09:00:00 09:00:[address] [facility] 2020-02-29 2020-02-29 [facility] [id number] Common 16:14:00 16:14:[address] [facility] 2020-02-22 2020-02-22 [facility] [id number] Common 08:30:00 08:30:[address] [facility] 2020-01-31 2020-01-31 [facility] [id number] Common 11:44:00 11:44:[address] [facility] 2020-01-24 2020-01-24 [facility] [id number] Common 10:00:00 10:00:[address] [facility] 2020-01-24 2020-01-24 [facility] [id number] Common 10:00:00 10:00:[address] [facility] 2019-12-26 2019-12-26 [facility] [id number] Common 10:43:00 10:43:[address] [facility] 2019-12-25 2019-12-25 Outpatient Janice Quiroz [id number] Common 13:45:00 13:45:[address] [facility] 2019-11-23 2019-11-23 Outpatient Janice Quiroz [id number] Common 11:00:00 11:00:[address] [facility] Results Test Description Test Time Test Comments Results Result Comments Source Chest Pa And Lat (2 Chest Pa And Lat Views) (2 Views) SARS-COV 2 Antigen SARS-COV 2 Antigen
[2022-07-22] MEDS ORDERED: ASPIRIN 81 MG CHEWABLE TABLET ONE (12:39)
[2022-07-22 13:01] LABS: Absolute Lymphocytes (CBC) 1.2 K/uL (0.7-4.9); Hematocrit 44.3 % (39.6-49.0); Lymphocytes % 23.1 % (15.3-44.8); MPV 8.1 fL (7.6-11.3); RBC Red Blood Cell Count 4.98 M/uL (4.33-5.43)
[2022-07-22 13:16] LABS: Albumin 3.6 g/dL (3.4-5.0); Bilirubin Total 0.6 mg/dL (0.2-1.0); Potassium 3.9 mmol/L (3.5-5.1); Protein, Total 7.2 g/dL (6.4-8.2); Troponin High Sensitivity 12.5 pg/mL (<58.9)
--- NOTE | 2022-07-22 14:11 | RAD REPORT ---
EXAM DESCRIPTION: CT - Head Brain Wo Cont - 07/22/2022 1:59 pm CLINICAL HISTORY: Headache, new or worsening COMPARISON: No comparisons TECHNIQUE: All CT scans are performed using dose optimization technique as appropriate and may inclu de automated exposure control or mA/KV adjustment according to patient size. FINDINGS: No intracranial hemorrhage, hydrocephalus or extra-axial fluid collection.No areas of brai n edema or evidence of midline shift. The paranasal sinuses and mastoids are clear. The calvarium is intact. IMPRESSION: No acute intracranial abnormality.
[2022-07-22] MEDS ORDERED: DIPHENHYDRAMINE 50 MG/ML VIAL ONE (14:20)
[2022-07-22] MEDS ORDERED: METOCLOPRAMIDE 10 MG/2mL INJ ONE (14:20)
[2022-07-22] MEDS ORDERED: ACETAMINOPHEN 500 MG TAB ONE (14:20)
--- NOTE | 2022-07-22 14:35 | ER ---
Nurse's Notes [facility] Name: Daniel Timmons Age: 67 yrs Sex: Male : 1955 Arrival Date: 07/22/2022 Time: 11:59 Bed 27 Private MD: Say Lanier Diagnosis: Chest pain, unspecified Presentation: 07/22 12:11 Chief complaint: Patient states: Mid sternal CP. Sent over by Urgent care, has CXR on ll1 disc. Coronavirus screen: Vaccine status: Patient reports receiving the 2nd dose of the covid vaccine. Client denies travel out of the [place] in the last 14 days. At this time, the client does not indicate any symptoms associated with coronavirus-19. Ebola Screen: Patient denies travel to an Ebola-affected area in the 21 days before illness onset. Initial Sepsis Screen: Does the patient meet any 2 criteria? No. Patient's initial sepsis screen is negative. Does the patient have a suspected source of infection? No. Patient's initial sepsis screen is negative. Risk Assessment: Do you want to hurt yourself or someone else? Patient reports no desire to harm self or others. Onset of symptoms was July 22, 2022. 12:11 Method Of Arrival: Ambulatory ll1 12:11 Acuity: MERLIN 2 ll1 Triage Assessment: 12:12 General: Appears in no apparent distress. Behavior is cooperative, appropriate for age. ll1 Pain: Complains of pain in chest Pain currently is 3 out of 10 on a pain scale. Quality of pain is described as pressure, Pain began 2-3 days ago. Cardiovascular: Reports chest pain. Historical: - Allergies: 12:10 No Known Allergies; ll1 - PMHx: 12:10 Hypertensive disorder; Hypercholesterolemia; ll1 - PSHx: 12:10 heart stent; R total knee replacement; prostate CA; mini gastric bypass; ll1 - Immunization history:: Client reports receiving the 2nd dose of the Covid vaccine. - Social history:: Smoking status: Patient denies any tobacco usage or history of. Screenin:16 Abuse screen: Denies threats or abuse. Denies injuries from another. Nutritional eh3 screening: No deficits noted. Tuberculosis screening: No symptoms or risk factors identified. Fall Risk None identified. Assessment: 12:16 General: Appears in no apparent distress. uncomfortable, Behavior is calm, cooperative, eh3 appropriate for age. Pain: Complains of pain in top of head and forehead and chest Pain does not radiate. Pain currently is 9 out of 10 on a pain scale. Quality of pain is described as pressure, throbbing, Pain began 2-3 days ago. Is continuous. Neuro: Level of Consciousness is awake, alert, obeys commands, Oriented to person, place, time, situation. Cardiovascular: Capillary refill < 3 seconds Patient's skin is warm and dry. Respiratory: Airway is patent Respiratory effort is even, unlabored, Respiratory pattern is regular, symmetrical. GI: No signs and/or symptoms were reported involving the gastrointestinal system. Abdomen is round non-distended. : No signs and/or symptoms were reported regarding the genitourinary system. EENT: No signs and/or symptoms were reported regarding the EENT system. Derm: No signs and/or symptoms reported regarding the dermatologic system. Musculoskeletal: No signs and/or symptoms reported regarding the musculoskeletal system. 12:16 Reassessment: Describes chest pain as "moderate pressure" and headache is "pounding". eh3 13:15 Reassessment: Patient and/or family updated on plan of care and expected duration. Pain eh3 level reassessed. Patient is alert, oriented x 3, equal unlabored respirations, skin warm/dry/pink. 14:15 Reassessment: Patient and/or family updated on plan of care and expected duration. Pain eh3 level reassessed. Patient is alert, oriented x 3, equal unlabored respirations, skin warm/dry/pink. Pain: Pain currently is 4 out of 10 on a pain scale. Vital Signs: 12:11 BP 189 / 103; Pulse 70; Resp 17; Temp 98.2; Pulse Ox 100% ; Weight 108.86 kg; Height 6 ll1 ft. 0 in. (182.88 cm); Pain 3/10; 12:16 BP 170 / 104; Pulse 81; Resp 17; Pulse Ox 100% on R/A; eh3 12:45 BP 184 / 95; Pulse 71; Resp 15; Pulse Ox 98% on R/A; eh3 13:00 BP 178 / 94; Pulse 70; Resp 20; Pulse Ox 98% on R/A; eh3 13:15 BP 173 / 93; Pulse 68; Resp 19; Pulse Ox 97% on R/A; eh3 14:15 BP 157 / 87; Pulse 72; Resp 17; Pulse Ox 100% on R/A; eh3 12:11 Body Mass Index 32.55 (108.86 kg, 182.88 cm) ll1 ED Course: 11:59 Patient arrived in ED. am2 11:59 Say Lanier, DO is Private Physician. am2 12:10 Arm band placed on Patient placed in an exam room, on a stretcher. ll1 12:12 Triage completed. ll1 12:16 Shy Salazar, RN is Primary Nurse. eh3 12:16 Patient has correct armband on for positive identification. Placed in gown. Bed in low eh3 position. Call light in reach. Side rails up X2. Client placed on continuous cardiac and pulse oximetry monitoring. NIBP monitoring applied. Door closed. Noise minimized. 12:16 Patient maintains SpO2 saturation greater than 95% on room air. eh3 12:18 Annemarie Woods MD is Attending Physician. sd2 12:45 Inserted saline lock: 20 gauge in right antecubital area, using aseptic technique. eh3 Blood collected. 13:16 Attending Physician role handed off by Annemarie Woods MD rt 13:16 Jose Mg MD is Attending Physician. rt 14:00 CT Head Brain wo Cont In Process Unspecified. EDMS 14:46 No provider procedures requiring assistance completed. eh3 14:47 IV discontinued, intact, bleeding controlled, No redness/swelling at site. Pressure eh3 dressing applied. Administered Medications: 12:40 Drug: Aspirin Chewable Tablet 243 mg Route: PO; eh3 13:29 Follow up: Response: Pain is unchanged, physician notified eh3 14:20 Drug: Benadryl (diphenhydrAMINE) 25 mg Route: IVP; Site: right antecubital; eh3 14:41 Follow up: Response: Pain is decreased eh3 14:20 Drug: Tylenol 1000 mg Route: PO; eh3 14:40 Follow up: Response: No adverse reaction eh3 14:22 Drug: Reglan (metoCLOPramide) 10 mg Route: IVP; Site: right antecubital; eh3 14:41 Follow up: Response: Pain is decreased eh3 Medication: 14:46 VIS not applicable for this client. eh3 Outcome: 14:34 Discharge ordered by . rt 14:54 Discharged to home ambulatory. eh3 14:54 Condition: stable 14:54 Discharge instructions given to patient, Instructed on discharge instructions, follow up and referral plans. Demonstrated understanding of instructions, follow-up care. 14:54 Patient left the ED. eh3 Signatures: Dispatcher [employer] EDDomonique Galeas Lynsay, RN RN 1 Shy Salazar RN RN eh3 Annemarie Woods MD MD tn2 Jose Mg MD MD rt
--- NOTE | 2022-07-22 14:35 | EDPHYS ---
Physician Documentation [facility] Name: Daniel Timmons Age: 67 yrs Sex: Male : 1955 Arrival Date: 07/22/2022 Time: 11:59 Bed 27 Private MD: Yannick [facility] ED Physician Jose Mg HPI: 07/22 12:44 This 67 yrs old Male presents to ER via Ambulatory with complaints of Chest Pain. sd2 12:44 67 yo M presents with CC of midsternal CP since last night. Reports constant since then sd2 without radiation. Worsened last night. Seen at urgent care with CXR showing possible bronchitis and referred to ER for cardiac enzymes due to prior history of IL. Took Tums without relief yesterday. Has also been taking care of his who recently had SI fusion surgery and may have strained his chest as well helping her.. Historical: - Allergies: 12:10 No Known Allergies; ll1 - PMHx: 12:10 Hypertensive disorder; Hypercholesterolemia; ll1 - PSHx: 12:10 heart stent; R total knee replacement; prostate CA; mini gastric bypass; ll1 - Immunization history:: Client reports receiving the 2nd dose of the Covid vaccine. - Social history:: Smoking status: Patient denies any tobacco usage or history of. ROS: 12:44 Constitutional: Negative for fever, chills, and weight loss, Eyes: Negative for injury, sd2 pain, redness, and discharge, Cardiovascular: Positive for chest pain, Negative for palpitations, and edema, Respiratory: Negative for shortness of breath, cough, wheezing. Abdomen/GI: Negative for abdominal pain, nausea, vomiting, diarrhea. MS/Extremity: Negative for injury and deformity, Skin: Negative for injury, rash, and discoloration, Neuro: Negative for headache, numbness and tingling. Exam: 12:44 Constitutional: This is a well developed, well nourished patient who is awake, alert, sd2 and in no acute distress. Head/Face: Normocephalic, atraumatic. Eyes: EOMI, normal conjunctiva bilaterally Chest/axilla: Normal chest wall appearance and motion. Nontender with no deformity. Cardiovascular: Regular rate and rhythm with a normal S1 and S2. No gallops, murmurs, or rubs. 2+ distal pulses. Respiratory: Lungs have equal breath sounds bilaterally, clear to auscultation and percussion. No rales, rhonchi or wheezes noted. No increased work of breathing, no retractions or nasal flaring. Abdomen/GI: Soft, non-tender, with normal bowel sounds. No guarding or rebound. No evidence of tenderness throughout. Skin: Warm, dry with normal turgor. Normal color with no rashes, no lesions, and no evidence of cellulitis. MS/ Extremity: Pulses equal, no cyanosis. Neurovascular intact. Full, normal range of motion. Ambulatory without difficulty. Psych: Awake, alert, with orientation to person, place and time. Behavior, mood, and affect are within normal limits. 12:49 ECG was reviewed by the Attending Physician. NSR, rate 65, no STEMI criteria sd2 Vital Signs: 12:11 BP 189 / 103; Pulse 70; Resp 17; Temp 98.2; Pulse Ox 100% ; Weight 108.86 kg; Height 6 ll1 ft. 0 in. (182.88 cm); Pain 3/10; 12:16 BP 170 / 104; Pulse 81; Resp 17; Pulse Ox 100% on R/A; eh3 12:45 BP 184 / 95; Pulse 71; Resp 15; Pulse Ox 98% on R/A; eh3 13:00 BP 178 / 94; Pulse 70; Resp 20; Pulse Ox 98% on R/A; eh3 13:15 BP 173 / 93; Pulse 68; Resp 19; Pulse Ox 97% on R/A; eh3 14:15 BP 157 / 87; Pulse 72; Resp 17; Pulse Ox 100% on R/A; eh3 12:11 Body Mass Index 32.55 (108.86 kg, 182.88 cm) ll1 MDM: 12:21 Patient medically screened. sd2 12:44 Differential diagnosis: Differential diagnosis includes but is not limited to: ACS, sd2 DVT/PE, pneumothorax, dissection, musculoskeletal, anxiety, anemia, electrolyte abnormality, pneumonia, CHF, COPD among others. Data reviewed: vital signs, nurses notes. 14:34 HEART Score: History: Slightly Suspicious (0), ECG: Normal (0), Age: > or = 65 years rt (2), Risk Factors: > or = 3 Risk factors for atherosclerotic disease (2), Troponin: < or = 1 x Normal Limit (0), Total Score = 4. ED course: Assumed care at shift change. Patient presents to the ED with 3 days of chest pain, resolved in the ED. Patient did complain of a headache that also resolved with headache cocktail. CT scan of the head is unremarkable. Patient has a nonischemic EKG, normal troponin. Given chronicity of symptoms, this is sufficient to rule out an acute IL. Patient did have a normal stress test earlier this year. 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 Strict return precautions were given. Patient verbalized understanding and is comfortable this plan.. 07/22 12:36 Order name: CBC with Diff; Complete Time: 13:27 sd2 07/22 12:36 Order name: CMP; Complete Time: 13:27 sd2 07/22 12:36 Order name: Troponin High Sensitivity; Complete Time: 13:27 sd2 07/22 12:36 Order name: Lipase; Complete Time: 13:27 sd2 07/22 13:28 Order name: CT Head Brain wo Cont; Complete Time: 14:27 rt 07/22 12:36 Order name: EKG - Nurse/Tech; Complete Time: 12:37 sd2 Administered Medications: 12:40 Drug: Aspirin Chewable Tablet 243 mg Route: PO; eh3 13:29 Follow up: Response: Pain is unchanged, physician notified eh3 14:20 Drug: Benadryl (diphenhydrAMINE) 25 mg Route: IVP; Site: right antecubital; eh3 14:41 Follow up: Response: Pain is decreased eh3 14:20 Drug: Tylenol 1000 mg Route: PO; eh3 14:40 Follow up: Response: No adverse reaction eh3 14:22 Drug: Reglan (metoCLOPramide) 10 mg Route: IVP; Site: right antecubital; eh3 14:41 Follow up: Response: Pain is decreased eh3 Disposition Summary: 07/22/22 14:34 Discharge Ordered Location: Home rt Problem: new rt Symptoms: have improved rt Condition: Stable rt Diagnosis - Chest pain, unspecified rt Followup: rt - With: Private Physician - When: 2 - 3 days - Reason: Discharge Instructions: - Discharge Summary Sheet rt - Nonspecific Chest Pain, Adult rt Forms: - Medication Reconciliation Form rt - Thank You Letter rt - Antibiotic Education rt - Prescription Opioid Use rt Signatures: Dispatcher [employer] Corazon Buck RN RN ll1 Shy Salazar RN RN 3 Annemarie Woods MD MD sd2 Jose Mg MD MD rt
[2022-07-22 15:14] VITALS: TEMP 98.2
[2022-07-22 15:25] VITALS: BP 157/87; O2SAT 100
--- NOTE | 2022-07-23 13:23 | EKG ---
Test Date: 2022-07-22 Test Time: 12:10:51 Vitreo Retinal Surgeon: BONITA MEASUREMENT RESULTS: Intervals: Rate: 65 MS: 176 QRSD: 86 QT: 396 QTc: 411 [place]: P: 50 MS: 176 QRS: -7 T: 28 INTERPRETIVE STATEMENTS: Normal sinus rhythm Normal ECG No previous ECG available for comparison Electronically Signed On 07-23-22 13:22:09 ELEVATOR TECHNICIAN by Rubén Solis
== END 2022-07-22 14:54 | disposition home or self-care (01) ==
LOC: ER 11:58
DX: R07.89 Other chest pain (principal); I10 Essential (primary) hypertension; Z95.818 Presence of other cardiac implants and grafts
CPT/HCPCS: 93005; 85025; 36415; 84484; 83690; 80053; 70450; 96375; 96374; 99284; J2765; J1200